=== PATIENT | female | born 1960 | race Caucasian/White ===

== ENCOUNTER 2022-03-24 16:35 | Outpatient (RCR) | payer MEDICARE, SELFPAY | END 2022-05-31 14:10 | disposition home or self-care (01) | PROVIDERS: PCP Family Medicine; Visit Provider Family Medicine | DX: M51.36 Other intervertebral disc degeneration, lumbar region (principal); M54.50 Low back pain, unspecified; R26.9 Unspecified abnormalities of gait and mobility; Z51.89 Encounter for other specified aftercare | CPT/HCPCS: 97110 ==

== ENCOUNTER 2022-09-20 17:58 | Emergency (ER) | payer MEDICARE, SELFPAY ==
[2022-09-20 18:30] VITALS: BP 158/75; PULSE 96; RESP 20; TEMP 36.2; O2SAT 99; BMI 28.3
[2022-09-20] MEDS: DEXTROSE 50 % SYRINGE IVP (18:34)
[2022-09-20 18:51] LABS: HCO3 VBG 26 mmol/L (21-28); PCO2 VBG 36 mmHG (40-50); PO2 VBG 33.9 mmHG (25-47); pH VBG 7.454 (7.32-7.43)
[2022-09-20 18:52] LABS: Basophils Absolute Auto 0.04 K/uL (0.00-0.30); Basophils Percent Auto 0.4 % (0.0-3.0); Eosinophils Absolute Auto 0.19 K/uL (0.00-0.50); Eosinophils Percent Auto 2.1 % (0.0-7.0); Hematocrit 37.4 % (33.0-51.0); Immature Granulocytes Abs Auto 0.01 K/uL (0.00-0.30); Immature Granulocytes Pct Auto 0.1 %; Lymphocytes Absolute Auto 2.07 K/uL (0.90-2.90); Lymphocytes Percent Auto 22.8 % (20-44); Mean Corpuscular HGB Conc 32 gm/dL (32-36); Mean Corpuscular Hemoglobin 28 pg (26-34); Mean Corpuscular Volume 86 fL (80-100); Monocytes Percent Auto 4.4 % (0.0-11.0); Neutrophils Absolute Auto 6.35 K/uL (1.7-7.0); Neutrophils Percent Auto 70.2 % (42.0-72.0); Platelet Count* 377 K/uL (140-440); RDW Coefficient of Variation % 13.7 % (11.5-15.5); Red Blood Count 4.33 m/uL (4.00-5.20); White Blood Count* 9.06 K/uL (4.50-11.00)
[2022-09-20 19:03] LABS: Slide Review Reflex No
[2022-09-20 19:07] LABS: Chloride* 110 mmol/L (96-114)
[2022-09-20 19:08] LABS: Albumin* 4.5 g/dL (3.3-5.0); Potassium* 3.8 mmol/L (3.6-5.1); Sodium* 143 mmol/L (135-149)
[2022-09-20 19:10] LABS: Creatinine* 0.5 mg/dL (0.5-1.5); Est. Creatinine Clearance* 52.49; Estimated Glomerular Filt Rate 106 ml/min
[2022-09-20 19:11] LABS: Aspartate Amino Transferase* 21 U/L (12-35); Bilirubin Direct* 0.2 mg/dL (0.0-0.5); Bilirubin Total* 0.6 mg/dL (0.1-1.5); Blood Urea Nitrogen* 19 mg/dL (7-30); Calcium* 9.6 mg/dL (8.4-10.6); Carbon Dioxide* 23 mmol/L (20-32); Glucose* 68 mg/dL (60-115); Total Protein* 8.1 g/dL (6.0-8.3)
[2022-09-20 19:12] LABS: Alanine Aminotransferase* 17 U/L (4-35); Alkaline Phosphatase* 130 U/L (40-150)
--- NOTE | 2022-09-20 19:45 | ED.NAVMDI ---
HPI - Nausea/Vomiting/Diarrhea General Chief complaint: Nausea/Vomiting Stated complaint: Can't keep food down, diabetic, blood sugar 60 Time Seen by Provider: 09/20/22 18:33 History of Present Illness HPI Narrative: This 62-year-old female comes in reporting persistent vomiting episodes over the past couple days. She does not report any particular abdominal pain. She does have diabetes and takes glucose lowering medications. Her glucose was noted to be at 48 upon arrival. She reports a dry mouth but does not have any polyuria. She states that she has a glucose monitor and there have been just a few episodes were her glucose was above 350 but nothing prolonged in this way. Related Data Home Medications Medication Instructions Recorded Confirmed cyclobenzaprine 10 mg tablet mg 09/20/22 flash glucose sensor (FreeStyle 09/20/22 09/20/22 Chente 2 Sensor kit) gabapentin 300 mg capsule mg 09/20/22 insulin glargine 100 unit/mL (3 unit subcut 09/20/22 mL) subcutaneous pen (Lantus Solostar U-100 Insulin) insulin lispro 100 unit/mL subcut 09/20/22 subcutaneous pen omeprazole 20 mg capsule,delayed mg 09/20/22 release pen needle, diabetic 31 gauge x 09/20/22 09/20/22 3/16 (BD Ultra-Fine Mini Pen Needle) simvastatin 20 mg tablet mg 09/20/22 Allergies Allergy/AdvReac Type Severity Reaction Status Date / Time acetaminophen [From Percocet] Allergy Verified 09/20/22 18:57 bacitracin Allergy Verified 09/20/22 18:57 doxycycline Allergy Verified 09/20/22 18:57 erythromycin base Allergy Verified 09/20/22 18:57 ibuprofen Allergy Verified 09/20/22 18:57 oxycodone [From Percocet] Allergy Verified 09/20/22 18:57 Review of Systems Status of ROS: Reports: 10 or more systems reviewed and unremarkable except as noted in History and below Narrative: Constitutional: No fevers, no weight gain or loss. Eyes: No discharge. No vision changes. HENT: No congestion, no sore throat, no ear pain. Cardiovascular: No chest pain, no palpitations. Respiratory: No shortness of breath, no wheezes, no cough. Gastrointestinal: No abdominal pain, no vomiting. She reports persistent nausea and vomiting. Genitourinary: No dysuria, no hematuria. Musculoskeletal: Normal range of motion. Skin: No rashes, no pruritis. Neurological: No dizziness, weakness, sensory change, speech change. Endo/Heme/Allergies: No bruising or bleeding. No polydipsia. Pysch: no suicidality, no anxiety, no insomnia. All other systems reviewed and are negative. Exam Narrative: Exam Narrative: Constitutional: Well-developed, well-nourished, no acute distress. HEENT: Normocephalic, atraumatic. Neck: Normal range of motion. Nontender. Supple. Heart: Regular. No murmurs. Normal rate. Intact distal pulses. Lungs: Clear to auscultation. No chest discomfort. No wheezes, rhonchi, or rales. Abdomen: Normal bowel sounds. Nontender. No rebound tenderness. Genitalia: Deferred. Back: No midline tenderness. Normal range of motion. Extremities: Normal range of motion. No injury. Skin: Intact. No rash. Warm. No erythema or pallor. Neurologic: No altered sensation. No weakness. Alert and oriented. Psychiatric: No suicidality. No anxiety or depression. No insomnia. Nursing notes and vitals signs are reviewed. Const: Vital Signs, click to edit/add: Vital Signs - 24 hr 09/20/22 18:30 Temperature 97.2 F L Pulse Rate [Right Pulse Oximeter] 96 Respiratory Rate 20 Blood Pressure [Ri ght Upper Arm] 158/75 H Pulse Oximetry 99 Oxygen Delivery Me thod Room Air Course Vital Signs Vital signs: Initial Vital Signs Temperature 97.2 F L 09/20/22 18:30 Temperature Source Temporal Artery Scan 09/20/22 18:30 Pulse Rate 96 09/20/22 18:30 Respiratory Rate 20 09/20/22 18:30 Blood Pressure 158/75 H 09/20/22 18:30 Blood Pressure Mean 102 09/20/22 18:30 Blood Pressure Position Sitting 09/20/22 18:30 Pulse Oximetry 99 09/20/22 18:30 Oxygen Delivery Method 09/20/22 18:30 Vital Signs Temperature 97.2 F L 09/20/22 18:30 Pulse Rate 96 09/20/22 18:30 Respiratory Rate 20 09/20/22 18:30 Blood Pressure 158/75 H 09/20/22 18:30 Pulse Oximetry 99 09/20/22 18:30 Oxygen Delivery Method 09/20/22 18:30 Temperature 97.2 F L 09/20/22 18:30 Pulse Rate 96 09/20/22 18:30 Respiratory Rate 20 09/20/22 18:30 Blood Pressure 158/75 H 09/20/22 18:30 Pulse Oximetry 99 09/20/22 18:30 Oxygen Delivery Method 09/20/22 18:30 MDM - Nausea/Vomiting/Diarrhea MDM Narrative Medical decision making narrative: This patient arrives reporting recurrent vomiting. Her glucose was initially evaluated at 48 so she received an amp of D50 intravenously. She also received a L of normal saline. Lab results returned with normal findings. Her venous pH is not ascitic, rather it is a bit alkalotic. She is not showing any signs of ketoacidosis. Her white count is normal range. Additionally her lipase is normal. She is feeling much better and is okay to return home. She did receive a prescription for Zofran. I advised her to decrease her glucose lowering medicines if she is not taking as much food or calories. Lab Data Labs: Lab Results 09/20/22 09/20/22 09/20/22 Range/Units 18:33 18:33 18:33 WBC 9.06 (4.50-11.00) K/uL RBC 4.33 (4.00-5.20) m/uL Hgb 12.0 (12.0-16.0) gm/dL Hct 37.4 (33.0-51.0) % MCV 86 (80-100) fL MCH 28 (26-34) pg MCHC 32 (32-36) gm/dL RDW Coeff of Yumiko 13.7 (11.5-15.5) % Plt Count 377 (140-440) K/uL Neut % (Auto) 70.2 (42.0-72.0) % Lymph % (Auto) 22.8 (20-44) % [place] % (Auto) 4.4 (0.0-11.0) % Eos % (Auto) 2.1 (0.0-7.0) % Baso % (Auto) 0.4 (0.0-3.0) % Neut # (Auto) 6.35 (1.7-7.0) K/uL Lymph # (Auto) 2.07 (0.90-2.90) K/uL [place] # (Auto) 0.40 (0.00-0.90) K/UL Eos # (Auto) 0.19 (0.00-0.50) K/uL Baso # (Auto) 0.04 (0.00-0.30) K/uL VBG pH (7.32-7.43) VBG pCO2 (40-50) mmHG VBG pO2 (25-47) mmHG VBG HCO3 (21-28) mmol/L Sodium 143 (135-149) mmol/L Potassium 3.8 (3.6-5.1) mmol/L Chloride 110 (96-114) mmol/L Carbon Dioxide 23 (20-32) mmol/L BUN 19 (7-30) mg/dL Creatinine 0.5 (0.5-1.5) mg/dL Estimated Creat Clear 52.49 Estimated GFR 106 ml/min Glucose 68 (60-115) mg/dL Calcium 9.6 (8.4-10.6) mg/dL Total Bilirubin 0.6 (0.1-1.5) mg/dL Direct Bilirubin 0.2 (0.0-0.5) mg/dL AST 21 (12-35) U/L ALT 17 (4-35) U/L Alkaline Phosphatase 130 (40-150) U/L Total Protein 8.1 (6.0-8.3) g/dL Albumin 4.5 (3.3-5.0) g/dL POC Troponin I (0.01-0.04) ng/ml 09/20/22 09/20/22 Range/Units 18:33 18:38 WBC (4.50-11.00) K/uL RBC (4.00-5.20) m/uL Hgb (12.0-16.0) gm/dL Hct (33.0-51.0) % MCV (80-100) fL MCH (26-34) pg MCHC (32-36) gm/dL RDW Coeff of Yumiko (11.5-15.5) % Plt Count (140-440) K/uL Neut % (Auto) (42.0-72.0) % Lymph % (Auto) (20-44) % [place] % (Auto) (0.0-11.0) % Eos % (Auto) (0.0-7.0) % Baso % (Auto) (0.0-3.0) % Neut # (Auto) (1.7-7.0) K/uL Lymph # (Auto) (0.90-2.90) K/uL [place] # (Auto) (0.00-0.90) K/UL Eos # (Auto) (0.00-0.50) K/uL Baso # (Auto) (0.00-0.30) K/uL VBG pH 7.454 H (7.32-7.43) VBG pCO2 36 L (40-50) mmHG VBG pO2 33.9 (25-47) mmHG VBG HCO3 26 (21-28) mmol/L Sodium (135-149) mmol/L Potassium (3.6-5.1) mmol/L Chloride (96-114) mmol/L Carbon Dioxide (20-32) mmol/L BUN (7-30) mg/dL Creatinine (0.5-1.5) mg/dL Estimated Creat Clear Estimated GFR ml/min Glucose (60-115) mg/dL Calcium (8.4-10.6) mg/dL Total Bilirubin (0.1-1.5) mg/dL Direct Bilirubin (0.0-0.5) mg/dL AST (12-35) U/L ALT (4-35) U/L Alkaline Phosphatase (40-150) U/L Total Protein (6.0-8.3) g/dL Albumin (3.3-5.0) g/dL POC Troponin I 0.00 L (0.01-0.04) ng/ml Discharge Plan Discharge Clinical Impression: Gastroenteritis, Hypoglycemia Patient Disposition: Home, Self-Care Condition: Improved Additional Instructions: Take medication as needed and directed. Follow up with MD to review medications. Return if worsening. Prescriptions: No Action cyclobenzaprine 10 mg tablet simvastatin 20 mg tablet gabapentin 300 mg capsule omeprazole 20 mg capsule,delayed release(DR/EC) insulin lispro 100 unit/mL insulin pen SUBCUT (DME) pen needle, diabetic [BD Ultra-Fine Mini Pen Needle] 31 gauge x 3/16 needle MISCELLANEOUS Label Comments: REMOVE THE 2 COVERS ON THE INSULIN PEN NEEDLE BEFORE ADMINISTERING INSULIN DOSE. insulin glargine [Lantus Solostar U-100 Insulin] 100 unit/mL (3 mL) insulin pen SUBCUT Label Comments: INJECT 40 UNITS SUBCUTANEOUS BEFORE BEDTIME. (DME) FreeStyle Chente 2 Sensor Kit MISCELLANEOUS Label Comments: CHANGE SENSOR EVERY 14 DAYS Follow Up/Referrals: Inés Mccarty MD [Primary Care Provider] - Stand Alone Forms: MyHealth Info Instructions
[2022-09-20 20:21] VITALS: BP 142/72; PULSE 99; RESP 18; O2SAT 92
[2022-09-23 12:54] LABS: Beta-Hydroxybutyric Acid 18.3 mg/dL (0.0-3.0)
== END 2022-09-20 21:10 | disposition home or self-care (01) ==
LOC: ED 20:43
PROVIDERS: Emergency Provider Emergency Medicine Emergency Medical Services; PCP Family Medicine
DX: K52.9 Noninfective gastroenteritis and colitis, unspecified (principal); E11.649 Type 2 diabetes mellitus with hypoglycemia without coma; Z79.84 Long term (current) use of oral hypoglycemic drugs
CPT/HCPCS: 36415; 80048; 80076; 82010; 82803; 84484; 85025; 96360; 96361; 96374; 99284; 99285

== ENCOUNTER 2022-11-23 10:30 | Outpatient (RCR) | payer MEDICARE, SELFPAY | END 2023-01-18 15:02 | disposition home or self-care (01) | PROVIDERS: PCP Family Medicine; Visit Provider Family Medicine | DX: M17.0 Bilateral primary osteoarthritis of knee (principal); M21.162 Varus deformity, not elsewhere classified, left knee; M21.161 Varus deformity, not elsewhere classified, right knee; M25.561 Pain in right knee; M25.562 Pain in left knee; G89.29 Other chronic pain; M62.81 Muscle weakness (generalized); Z51.89 Encounter for other specified aftercare | CPT/HCPCS: 97110; 97112; 97161; 97530 ==

== ENCOUNTER 2023-04-27 08:18 | Day surgery (SDC) | payer MEDICAID, SELFPAY ==
[2023-04-27] MEDS: KETOROLAC OPHTH 0.5% 1 DROP EYE-RIGHT ×3 (08:30→08:40)
[2023-04-27] MEDS: TETRACAINE 0.5% OPHTH 1 DROP EYE-RIGHT ×2 (08:30→08:35)
[2023-04-27] MEDS: SODIUM CHLORIDE 0.9 % (FLUSH) 10 ML SYRINGE IVF (08:40)
[2023-04-27 08:45] VITALS: BP 113/67; PULSE 91; RESP 16; TEMP 36.8; O2SAT 100
[2023-04-27 08:46] VITALS: BMI 30.3
--- NOTE | 2023-04-27 08:48 | SUR.PREOP ---
The eye drops brought by the patient (Ketorolac and Prednisolone) are examined and I have determined they are labeled by the patient's pharmacy for this patient as prescribed by the surgeon. The bottles are intact, recently obtained and appear to be correct.
[2023-04-27] MEDS: TETRACAINE 0.5% OPHTH 2 DROP EYE-RIGHT (09:33)
[2023-04-27] MEDS: BALANCED SALT IRRIG SOLN 15 ML EYE-RIGHT (09:35)
--- NOTE | 2023-04-27 09:36 | W.ANESCHARGE ---
Anesthesia Charges Start Date/Time Anesthesia Start Date: 04/27/23 Anesthesia Start Time: 09:29 Stop Date/Time Anesthesia Stop Date: 04/27/23 Anesthesia Stop Time: 10:02
[2023-04-27] MEDS: TRYPAN BLUE 0.5 ML SYRINGE EYE-RIGHT (09:37)
[2023-04-27 10:03] VITALS: BP 111/70; PULSE 81; RESP 16; TEMP 36.3; O2SAT 100
--- NOTE | 2023-04-27 10:07 | W.PM.OPTPROC ---
Procedure Note Date of procedure: 04/27/23 Will [facility] bill your pro fee for this procedure?: Yes Procedure Description: SURGEON: Gaye Basurto MD PREOPERATIVE DIAGNOSIS: Mature cataract, right eye. POSTOPERATIVE DIAGNOSIS: Mature cataract, right eye. NAME OF OPERATION: Phacoemulsification of cataract with posterior chamber intraocular lens implantation in the right eye with trypan blue. ANESTHESIA: Topical. ESTIMATED BLOOD LOSS: Less than 2 cc. COMPLICATIONS: None. PATHOLOGY SPECIMEN: None. INDICATIONS: See consult note for details. The risks, benefits and alternatives of the procedure were explained to the patient, who elected to proceed and signed informed consent to do so. PROCEDURE: The patient was brought to the pre-holding area where the right eye was identified as the operative eye. I placed my initials above this eye. The patient received eye drops consisting of 0.5% tetracaine, 1% tropicamide, 10% phenylephrine, and 0.5% ketorolac. The patient was then brought to the operating room where the left eye was again identified as the operative eye. The eye was prepped with Betadine and draped in the usual sterile ophthalmic fashion. A #15 super-sharp blade was used to create a paracentesis site. 1% non-preserved intracameral lidocaine was injected into the anterior chamber. An air bubble was injected into the anterior chamber. Trypan blue was injected posterior to the air bubble in order to stain the anterior capsule. Balanced salt solution was used to irrigate the anterior chamber. Endocoat was injected into the anterior chamber. A 2.4 mm keratome was used to create a three-plane self-sealing incision 1 mm anterior to the temporal limbus. A cystotome was used to create an anterior capsular leaflet. The Utrata forceps were used to extend this to form a continuous curvilinear capsulorrhexis. Hydrodissection was performed. The cataract was removed with phacoemulsification using the [id number] technique. The irrigation and aspiration tip was used to remove the remaining cortex. Healon was injected into the capsular bag. An VAHE ZCB00 intraocular lens of 22.5 diopters was injected into the capsular bag. The irrigation and aspiration tip was used to remove the remaining viscoelastic. Balanced salt solution on a cannula was used to hydrate the wound, and the wound was found to be watertight. The pupil was noted to be round. DISPOSITION: The patient was taken to the recovery room and discharged to home in stable condition. The patient was instructed to call me or go to the emergency department with any sudden change, including dramatic loss of vision, severe pain in the eye or eyebrow region, nausea, or vomiting. The patient will follow up in the clinic tomorrow morning.
--- NOTE | 2023-04-27 10:22 | W.ANESCHARGE ---
Anesthesia Charges Start Date/Time Anesthesia Start Date: 04/27/23 Anesthesia Start Time: 09:29 Stop Date/Time Anesthesia Stop Date: 04/27/23 Anesthesia Stop Time: 10:02
== END 2023-04-27 10:30 | disposition home or self-care (01) ==
LOC: OR 08:20
PROVIDERS: PCP Family Medicine; Visit Provider Ophthalmology
PROC: (CPT 66984; principal; 2023-04-27 09:00)
DX: H25.89 Other age-related cataract (principal)
CPT/HCPCS: 66984; 142; 82962; A9270; J2250; J3010; V2632

== ENCOUNTER 2023-06-08 08:45 | Day surgery (SDC) | payer MEDICAID, SELFPAY ==
[2023-06-08] MEDS: TETRACAINE 0.5% OPHTH 1 DROP EYE-LEFT ×2 (09:18→09:24)
[2023-06-08] MEDS: KETOROLAC OPHTH 0.5% 1 DROP EYE-LEFT ×3 (09:22→09:36)
[2023-06-08] MEDS: SODIUM CHLORIDE 0.9 % (FLUSH) 10 ML SYRINGE IVF (09:31)
[2023-06-08 09:33] VITALS: BP 132/73; PULSE 102; RESP 16; TEMP 36.8; O2SAT 99; BMI 12.4
[2023-06-08] MEDS: TETRACAINE 0.5% OPHTH 2 DROP EYE-LEFT (10:27)
[2023-06-08] MEDS: TRYPAN BLUE 0.5 ML SYRINGE EYE-LEFT (10:32)
[2023-06-08] MEDS: BALANCED SALT IRRIG SOLN 15 ML EYE-LEFT (10:32)
--- NOTE | 2023-06-08 10:32 | W.ANESCHARGE ---
Anesthesia Charges Start Date/Time Anesthesia Start Date: 06/08/23 Anesthesia Start Time: 10:25 Stop Date/Time Anesthesia Stop Date: 06/08/23 Anesthesia Stop Time: 10:58
--- NOTE | 2023-06-08 11:00 | W.PM.OPTPROC ---
Procedure Note Date of procedure: 06/08/23 Will [facility] bill your pro fee for this procedure?: Yes Procedure Description: SURGEON: Gaye Basurto MD PREOPERATIVE DIAGNOSIS: Mature cataract, left eye. POSTOPERATIVE DIAGNOSIS: Mature cataract, left eye. NAME OF OPERATION: Phacoemulsification of cataract with posterior chamber intraocular lens implantation in the left eye with trypan blue. ANESTHESIA: Topical. ESTIMATED BLOOD LOSS: Less than 2 cc. COMPLICATIONS: None. PATHOLOGY SPECIMEN: None. INDICATIONS: See consult note for details. The risks, benefits and alternatives of the procedure were explained to the patient, who elected to proceed and signed informed consent to do so. PROCEDURE: The patient was brought to the pre-holding area where the left eye was identified as the operative eye. I placed my initials above this eye. The patient received eye drops consisting of 0.5% tetracaine, 1% tropicamide, 10% phenylephrine, and 0.5% ketorolac. The patient was then brought to the operating room where the left eye was again identified as the operative eye. The eye was prepped with Betadine and draped in the usual sterile ophthalmic fashion. A #15 super-sharp blade was used to create a paracentesis site. 1% non-preserved intracameral lidocaine was injected into the anterior chamber. An air bubble was injected into the anterior chamber. Trypan blue was injected posterior to the air bubble in order to stain the anterior capsule. Balanced salt solution was used to irrigate the anterior chamber. Endocoat was injected into the anterior chamber. A 2.4 mm keratome was used to create a three-plane self-sealing incision 1 mm anterior to the temporal limbus. A cystotome was used to create an anterior capsular leaflet. The Utrata forceps were used to extend this to form a continuous curvilinear capsulorrhexis. Hydrodissection was performed. The cataract was removed with phacoemulsification using the [id number] technique. The irrigation and aspiration tip was used to remove the remaining cortex. Healon was injected into the capsular bag. An VAHE ZCB00 intraocular lens of 22.5 diopters was injected into the capsular bag. The irrigation and aspiration tip was used to remove the remaining viscoelastic. Balanced salt solution on a cannula was used to hydrate the wound, and the wound was found to be watertight. The pupil was noted to be round. DISPOSITION: The patient was taken to the recovery room and discharged to home in stable condition. The patient was instructed to call me or go to the emergency department with any sudden change, including dramatic loss of vision, severe pain in the eye or eyebrow region, nausea, or vomiting. The patient will follow up in the clinic tomorrow morning.
[2023-06-08 11:18] VITALS: BP 109/65; PULSE 78; RESP 16; TEMP 36.3; O2SAT 98
--- NOTE | 2023-06-08 11:35 | W.ANESCHARGE ---
Anesthesia Charges Start Date/Time Anesthesia Start Date: 06/08/23 Anesthesia Start Time: 10:25 Stop Date/Time Anesthesia Stop Date: 06/08/23 Anesthesia Stop Time: 10:58
== END 2023-06-08 11:27 | disposition home or self-care (01) ==
LOC: OR 08:46
PROVIDERS: PCP Family Medicine; Visit Provider Ophthalmology
PROC: (CPT 66984; principal; 2023-06-08 09:00)
DX: H25.89 Other age-related cataract (principal)
CPT/HCPCS: 66984; 142; 82962; A9270; J2250; J3010; V2632

== ENCOUNTER 2023-06-28 14:33 | Outpatient (CLI) | payer MEDICAID, SELFPAY | END 2023-06-28 14:34 | disposition home or self-care (01) | LOC: INJ CL 14:33 | PROVIDERS: PCP Family Medicine; Visit Provider Family Medicine | DX: M17.12 Unilateral primary osteoarthritis, left knee (principal); M25.561 Pain in right knee | CPT/HCPCS: 64454 ==

== ENCOUNTER 2023-07-19 12:12 | Outpatient (CLI) | payer MEDICAID, SELFPAY | END 2023-07-19 12:13 | disposition home or self-care (01) | LOC: INJ CL 12:13 | PROVIDERS: PCP Family Medicine; Visit Provider Family Medicine | DX: M17.12 Unilateral primary osteoarthritis, left knee (principal); M25.562 Pain in left knee; G89.29 Other chronic pain | CPT/HCPCS: 64624; J2250; J3010 ==

== ENCOUNTER 2023-08-18 12:34 | Outpatient (CLI) | payer MEDICAID, SELFPAY | END 2023-08-18 12:35 | disposition home or self-care (01) | PROVIDERS: PCP Family Medicine; Visit Provider Nurse Practitioner Family | DX: S91.301A Unspecified open wound, right foot, initial encounter (principal) | CPT/HCPCS: 87070; 87186 ==

== ENCOUNTER 2023-08-25 08:01 | Outpatient (CLI) | payer MEDICAID, SELFPAY | END 2023-08-25 08:02 | disposition home or self-care (01) | PROVIDERS: PCP Family Medicine; Visit Provider Nurse Practitioner Family | DX: E11.621 Type 2 diabetes mellitus with foot ulcer (principal); L97.512 Non-pressure chronic ulcer of other part of right foot with fat layer exposed; Z79.84 Long term (current) use of oral hypoglycemic drugs; Z71.6 Tobacco abuse counseling | CPT/HCPCS: 97602; 99213 ==

== ENCOUNTER 2023-09-01 08:59 | Outpatient (CLI) | payer MEDICAID, SELFPAY | END 2023-09-01 09:00 | disposition home or self-care (01) | LOC: WOUND 08:59 | PROVIDERS: PCP Family Medicine; Visit Provider Nurse Practitioner Family | DX: E11.621 Type 2 diabetes mellitus with foot ulcer (principal); L97.512 Non-pressure chronic ulcer of other part of right foot with fat layer exposed; Z79.4 Long term (current) use of insulin | CPT/HCPCS: 11042 ==

== ENCOUNTER 2023-09-08 08:10 | Outpatient (CLI) | payer MEDICAID, SELFPAY | END 2023-09-08 08:11 | disposition home or self-care (01) | LOC: WOUND 08:10 | PROVIDERS: PCP Family Medicine; Visit Provider Nurse Practitioner Family | DX: E11.621 Type 2 diabetes mellitus with foot ulcer (principal); L97.512 Non-pressure chronic ulcer of other part of right foot with fat layer exposed; Z79.4 Long term (current) use of insulin | CPT/HCPCS: 97597 ==

== ENCOUNTER 2023-09-22 08:17 | Outpatient (CLI) | payer MEDICAID, SELFPAY | END 2023-09-22 08:18 | disposition home or self-care (01) | LOC: WOUND 08:18 | PROVIDERS: PCP Family Medicine; Visit Provider Family Medicine | DX: E11.621 Type 2 diabetes mellitus with foot ulcer (principal); L97.512 Non-pressure chronic ulcer of other part of right foot with fat layer exposed; Z79.4 Long term (current) use of insulin | CPT/HCPCS: 11042 ==

== ENCOUNTER 2023-10-13 10:26 | Outpatient (CLI) | payer MEDICAID, SELFPAY ==
--- OUTSIDE RECORDS SUMMARY | 2023-10-13 10:28 | XMS_ITS | Clinical Summary ---
Author Name Unknown Organization [facility] Address [place], [place] [address] Care Team Providers Care Offline Cutter Name Role Phone Lulu Cano MD Primary Care Provider Allergies Active Allergy Reactions Criticality Noted Date Comments Bacitracin Rash 05/02/2007 Doxycycline Rash 05/02/2007 Erythromycin Vaginal Irritation 06/02/2007 Developed a severe yeast infection Ibuprofen Rash,Bleeding 05/02/2007 Oxycodone-Acetaminophen Hives,Wheezing 05/02/20 07 Medications Medication Sig Dispensed Refills Start Date End Date Status MULTIVITAMIN TAB take 1 tablet by oral route once daily with food 0 7 Active CALCIUM + D 600 MG (1,500)-200 UNIT TAB daily 0 0 8 Active medication order composerIndications: Type 2 diabetes mellitus without complication, with long-term current use of insulin (HC) 1 unit every 1 year. Diabetes with preulcerative callous and hammertoe deformity 1 unit 0 6 Active aspirin (ECOTRIN) 81 mg enteric coated tabletIndications:Un controlled type 2 diabetes mellitus without complication, with long-term current use of insulin Take 1 tablet by mouth once daily with a meal. 30 tablet 11 7 Active flash glucose scanning reader (FreeStyle Chente 2 Barlow) miscIndications:Unco ntrolled type 2 diabetes mellitus, with long-term current use of insulin As directed. 1 Each 0 1 Active diclofenac topical (VOLTAREN) 1 % gelIndications:Bilat eral hand pain Apply 2 g topically to affected area(s) 4 times daily. 200 g 1 1 Active blood sugar diagnostic (Blood Glucose Test) stripIndications:Unc ontrolled type 2 diabetes mellitus, with long-term current use of insulin Free style chente 2 strips. For use when sensor fails.Test 4-6 times per day. 100 Each 1 Active blood-glucose meterIndications:Unc ontrolled type 2 diabetes mellitus, with long-term current use of insulin Dispense meter, test strips(#100), lancets(#100) covered by pt ins. E11.9 NIDDM type II - Test 2 times/day. 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 90 Tablet 3 2 Active cyclobenzaprine (FLEXERIL) 10 mg tabletIndications:DD D (degenerative disc disease), lumbar Take 1 Tablet (10 mg) by mouth at bedtime if needed for Muscle Spasm. 90 Tablet 1 2 Active FreeStyle Chente 2 SensorIndications:Ty pe 2 diabetes mellitus with other specified complication, with long-term current use of insulin (HC) CHANGE SENSOR EVERY 14 DAYS 6 Each 3 3 Active insulin lispro, U-100, (HUMALOG KWIKPEN; ADMELOG SOLOSTAR) 100 unit/mL inpn penIndications:Type 2 diabetes mellitus with other specified complication, with long-term current use of insulin (HC) INJECT 5 UNITS WITH DINNER PLUS CORRECTION DOSE OF 1:50 OVER 150, UP TO 45 UNITS DAILY 15 mL 1 3 Active Insulin Orient, Disposable, (bd insulin pen needle uf mini) 31 gauge x /16Indications:Lynn gonzalez 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 (increased dose) 540 Capsule 0 3 Active omeprazole 20 mg tabletIndications:He artburn Take 1 Tablet (20 mg) by mouth once daily before a meal. 90 Tablet 2 3 Active ammonium lactate 12% (LACHYDRIN) 12 % cream Apply topically to affected area(s) one time. daily 0 3 Active empagliflozin (JARDIANCE) 25 mg tabletIndications:Ty pe 2 diabetes mellitus with other specified complication, with long-term current use of insulin (HC) Take 1 Tablet (25 mg) by mouth once daily. Take in the morning. 90 Tablet 1 4 Active insulin glargine, U-100, (Lantus Solostar U-100 Insulin) 100 unit/mL (3 mL) penIndications:Type 2 diabetes mellitus with other specified complication, with long-term current use of insulin (HC) Inject 50 units subcutaneous before bedtime. Product desired: LANTUS SOLOSTAR 0 4 Active ofloxacin 0.3 % ophthalmic (OCUFLOX) 0.3 % ophthalmic solution Place 1 Drop into left eye four times daily. 0 3 09/30/19 24 Discontinu ed(*Patien t states no longer taking) ketorolac 0.5 % ophthalmic (ACULAR) solution Place 1 Drop into left eye four times daily. 0 3 09/30/19 24 Discontinu ed(*Patien t states no longer taking) prednisoLONE acetate 1% ophthalmic (ECONOPRED PLUS, PRED FORTE, OMNIPRED) suspension Place 1 Drop into left eye three times daily. 0 3 09/30/19 24 Discontinu ed(*Patien t states no longer taking) empagliflozin (JARDIANCE) 10 mg tabletIndications:Ty pe 2 diabetes mellitus with other specified complication, with long-term current use of insulin (HC) Take 1 Tablet (10 mg) by mouth once daily. Take in the morning. 90 Tablet 0 3 09/30/19 24 Discontinu ed(*Medica tion adjustment ) insulin glargine, U-100, (Lantus Solostar U-100 Insulin) 100 unit/mL (3 mL) penIndications:Type 2 diabetes mellitus with other specified complication, with long-term current use of insulin (HC) Inject 55 units subcutaneous before bedtime. Product desired: LANTUS SOLOSTAR 45 mL 1 3 09/30/19 24 Discontinu ed(*Medica tion adjustment ) amoxicillin-clavulan ate 875-125 mg tablet (AUGMENTIN) Take 1 Tablet by mouth two times daily with meals. 0 3 09/30/19 24 Discontinu ed(*Patien t states no longer taking) Active Problems Problem Noted Date Diagnosed Date ASCUS of cervix with negative high risk HPV 11/17 Overview: 12/01/2020 ASCUS/HPV Negative. Plan: Pap/HPV due 11/2023 Mild nonproliferative diabet ic retinopathy of right eye without macular edema associated with type 2 diabetes mellitus 11/10/2017 Knee pain, left 07/25/2017 Osteoarthritis of knees, bilateral 07/25/2017 Right hand pain 07/25/2017 Arthritis of hand 07/25/2017 Amphetamine abuse 07/14/2017 Marijuana abuse 07/14/2017 Noncompliance with diet and medication regimen 1 Uncontrolled type 2 diabetes mellitus without complication, with long-term current use of insulin 07/14/2017 Chest pain in adult 07/14/2017 Acquired hammer toe 07/14/2017 Foot pain, right 07/14/2017 Lumbar disc herniation 06/29/2013 Osteoarthritis of hip 06/27/2009 DDD (degenerative disc disease), lumbar 06/27/20 09 Overview: MRI 2006 L4-5 left disc herniation, L5-S1 disffuse disc bulding. ~ May 30, 2012:L5-S1 transforaminal Work comp epidural steroid injection by Dr. Perdue. Obesity, unspecified 11/29/2007 Tobacco use disorder 08/18/2007 Other and unspecified hyperlipidemia 08/18/2007 Dysthymic disorder 06/19/2007 Resolved Problems Problem Noted Date Diagnosed Date Resolved Date Anticoagulation monitoring, INR range 2.5-3.5 04/17/20 14 04/17/2014 Pain medication agreement 11/26/2011 Overview: [place] adjusted per [facility] Signed Electronically: Angelo Perdue M.D. . . . 9:13 AM 03/25/2014 Type II or unspecified type diabetes mellitus without mention of complication, not stated as uncontrolled 04/28/2006 07/14/2017 Encounters Date Type Department Care Team Description 10/03/[address] [address] Brenda Rush, Results 09/30/2023 10:15 AM CREATIVE ARTS THERAPIST Ancillary Procedure [address] [address] 09/30/2023 9:10 AM CREATIVE ARTS THERAPIST Office Visit [address] [address] Brenda Rush, Diabetes (diabetes check); Lump (lump/bump at base of neck in front); Results (discuss increased blood pressure and Jardiance) 09/30/2023 Travel 09/28/[address] [address] Brenda Rush DO Refill Request; JARDIANCE 09/21/2023 Orders Only [facility] Scanner 1 scan: (1-Ord) [facility], 09/21/2023 09/08/[address] [address] Lulu Cano MD Refill Request (OMEPRAZOLE 20MG CAPSULES) 08/29/[address] [address] Lulu Cano MD Refill Request (Gabapentin 300mg capsules ) 08/18/[address] [address] Lulu Cano MD Refill Request (B-D PEN NDL MINI [id number]) 07/19/2023 1:00 PM CDT Procedure Only [facility] [address] [place] [address] Angelo Perdue MD Procedure (Left knee RFA with Coolief) 07/19/2023 Orders Only [facility] Scanner 1 scan: (1-Ord) [facility] GENICULAR NERVE RADIOFREQUENCY W/ IMAGING GUIDANCE, 07/19/2023 from Last 3 Months Immunizations Name Administration Dates Next Due COVID-19 Vaccine Spikevax (M oderna 50mcg/0.5mL) 12YO+ [id number] Formula PF 06/30/2023 COVID-19 vaccine (Moderna 100mcg/0.5mL) PF, MDV 11/14/2020,10/17/2020 COVID-19 vaccine (Pfizer-Bio NTech 30mcg/0.3mL) 12YO+ BIVALENT PF, MDV 07/28/2022 Influenza, IIV3 (Age 6-35 mos) 06/07/2011 Influenza, IIV3 (Age >=3 years) 05/16/20 15,05/20/2013,05/18/2013,2011,06/07/2011,06/07/2010,06/12/2009,1 ,07/07/2007 Influenza, IIV4 06/30/2023, 2,07/20/2021,2017,05/19/2017,05/31/2016,06/14/2014 Influenza, IIV4 (=>6mos) MDV 05/19/2017,05/31/20 16,05/14/2016 Pneumococcal Conj 20-valent (Prevnar 20) 07/28/2022 Pneumococcal Poly,23-Valent (Pneumovax) 12/26/2013 Td (Age >=7 Years) 06/19/2005 Td, Preservative Free (age > = 7 Years) 07/06/2005 Tdap 12/26/2013 Zoster (Zostavax-ZVL, live) 03/15/2012 Family History Medical History Relation Name Comments Diabetes Brother 1 Other Brother 2 19 motorcycle acci dent, probably alcohol related Other Brother 3 32 got hit by an S UV while biking Other Brother 4 45 carbon monoxide poisoning while working on a car while intoxicated, thought to be accidental Arthritis Father Diabetes Mother Heart failure Mother Cancer-colon Neg. Cancer-breast Paternal Aunt x 2 both post menopause Relation Name Status Comments Brother 1 Alive Brother 2 19 Brother 3 32 Brother 4 45 Father Alive Mother Neg. Paternal Aunt Social History Tobacco Use Types Packs/Day Years Used Date Smoking Tobacco: Every Day Cigarettes 0.5 30 Smokeless Tobacco: Never Tobacco Cessation:Ready to Q uit: No; Counseling Given: Not Answered Alcohol Use Standard Drinks/Week Comments Not Currently 0 (1 standard drink = 0.6 oz pur e alcohol) PHQ-2 Answer Date Recorded PHQ-2 TOTAL SCORE 0 04/11/2023 Social Connections Answer Date Recorded Frequency of Communication with Friends and Fami ly 0 05/27/2023 Financial Resource Strain Answer Date R ecorded Difficulty of Paying Living Expenses 3 05/27/2023 Difficulty of Paying Living Expenses Not on file 05/27/2023 Food Insecurity Answer Date Recorded Worried About Running Out of Food in the Last Ye ar 1 05/27/2023 Transportation Needs Answer Date Record ed Lack of Transportation (Medical) 1 05/27/2023 Housing Stability Answer Date Recorded Unable to Pay for Housing in the Last Year 1 05/27/2023 Sex and Gender Information Value Date Recorded Sex Assigned at Not on file Gender Identity Not on file Sexual Orientation Not on file Obstetrics History Para Term AB IAB SAB Ectopic Multiple Livin g Live Births 0 0 0 0 0 0 0 0 0 Last Filed Vital Signs Vital Sign Reading Time Taken Comments Blood Pressure 128/79 09/30/2023 9:48 AM CREATIVE ARTS THERAPIST Pulse 96 09/30/2023 9:48 AM CREATIVE ARTS THERAPIST Temperature 36.9 ??C (98.5 ??F) 05/30/2023 1 0:28 AM CDT Respiratory Rate 18 10/02/2021 8:48 AM CREATIVE ARTS THERAPIST Oxygen Saturation 100% 09/30/2023 9:32 AM CREATIVE ARTS THERAPIST Inhaled Oxygen Concentration - - Weight 84.3 kg (185 lb 12.8 oz) 09/30/2023 9:32 AM CREATIVE ARTS THERAPIST Height 162 cm (5' 3.78) 05/27/2023 11: 24 AM CDT Body Mass Index 32.11 05/27/2023 11:24 AM CDT Plan of Treatment Upcoming Encounters Date Type Department Care Team (Late st Contact Info) Description 12/30/2023 10:20 AM CDT Office Visit [facility] [address] [place] [address] Lulu Cano MD [address] [facility] [address] Health Maintenance Due Date Last Done Comments Colonoscopy through age [address] (for lung CA) ag e 50-80 2010 Zoster (shingles) series for age 50+ (2 of 3) 05/10/2012 03/15/2012 Mammogram for age 45-75 12/19/2021 12/20/19, 03/27/2015, 07/20/2011, Additional history exists Pap test for age 21-65 12/02/2023 , 12/01/2020, 03/27/2015, Additional history exists Tetanus booster 12/27/2023 12/26/2013, 06/19, 06/19/2005 Depression screening for age 12+ 04/11/2024 04/11/2023, 12/08/2021, 12/07/2021, Additional history exists BMI (ht and wt on same day) for age 18+ 05/27/2024 05/27/2023, 04/11/2023, 12/07/2021, Additional history exists Lipids for age 45-75 09/30/2028 09/30/2023, 12/07/2021, 12/01/2020, Additional history exists Tdap Completed 12/26/2013 HIV for age 15-65 Completed 07/14/2017 Hepatitis C screening for ag e 18-79 Completed 12/01/2020 Pneumococcal series for age 6-64 Completed 07/28/20, 12/26/2013 COVID-19 vaccine series Completed 06/30/20, 07/28/2022, 11/14/2020, Additional history exists Influenza for age 50-64 Completed 06/30/20, 07/28/2022, 07/20/2021, Additional history exists Procedures Procedure Name Priority Date/Time Associated Diagnosis Comments XR CLAVICLE RIGHT Routine 09/30/2023 10: 21 AM CREATIVE ARTS THERAPIST Deformity of clavicle LIPID PANEL W REFLEX MEASURED LDL Routine 09/30/2023 9:26 AM CREATIVE ARTS THERAPIST Type 2 diabetes mellitus with diabetic cataract, with long-term current use of insulin (HC) BASIC METABOLIC PANEL Routine 09/30/2023 9:26 AM CREATIVE ARTS THERAPIST Type 2 diabetes mellitus with diabetic cataract, with long-term current use of insulin (HC) HEMOGLOBIN A1C Routine 09/30/2023 9:26 AM CREATIVE ARTS THERAPIST Type 2 diabetes mellitus with diabetic cataract, with long-term current use of insulin (HC) SCAN-EYE EXAM 09/21/2023 12:00 AM CREATIVE ARTS THERAPIST SCAN-OPERATIVE/PROCE DURE REPORT 07/19/2023 12:00 AM CDT from Last 3 Months Results * XR CLAVICLE RIGHT (09/30/2023 10:21 AM CREATIVE ARTS THERAPIST) Anatomical Region Laterality Modality CLAVICLE R, CLAVICLES Computed R adiography 10/01/2023 3:14 PM CREATIVE ARTS THERAPIST Narrative 10/01/2023 3:14 PM CREATIVE ARTS THERAPIST For Patients: ??As a result of the Cures Act, medical imaging exams and procedure reports are released immediately into your electronic medical record. ??You may view this report before your referring provider. ??If you have questions, please contact your health care provider. Indication: Deformity of clavicle. Technique: Right clavicle two views. Comparison: None Findings: No acute fracture or dislocation. Degenerative changes of the acromioclavicular and glenohumeral joints. No additional osseous abnormality evident. Soft tissues as imaged are unremarkable. Impression: No acute osseous abnormality. Dictated by Zain Roman MD @ 10/01/2023 3:14:44 PM (Electronically Signed) Procedure Note Zain Roman DO - 10/01/2023 For Patients: As a result of the Cures Act, medical imagingexams and procedure reports are released immediately into your electronicmedical record. You may view this report before your referring provider.If you have questions, please contact your health care provider. Indication: Deformity of clavicle. Technique: Right clavicle two views. Comparison: None Findings: No acute fracture or dislocation. Degenerative changes of theacromioclavicular and glenohumeral joints. No additional osseousabnormality evident. Soft tissues as imaged are unremarkable. Impression: No acute osseous abnormality. Dictated by Zain Roman MD @ 10/01/2023 3:14:44 PM (Electronically Signed) Brenda Rush DO GENERAL IMAGING * (ABNORMAL) LIPID PANEL W REFLEX MEASURED LDL (09/30/2023 9:26 AM CREATIVE ARTS THERAPIST) CHOLESTEROL,TOTAL 152 100 - 199 mg/dL 09/30/2023 5:57 PM CREATIVE ARTS THERAPIST [facility] Comment: Cholesterol, Total Reference Ranges Desirable <200 mg/dL Borderline 200-239 mg/dL High >=240 mg/dL TRIGLYCERIDES 178(H) <150 mg/dL 09/30/2023 5:57 PM CREATIVE ARTS THERAPIST [facility] HDL CHOLESTEROL 60 >40 mg/dL 5:57 PM CREATIVE ARTS THERAPIST [facility] NON-HDL CHOLESTEROL 92 <145 mg/dl 09/30/2023 5:57 PM CREATIVE ARTS THERAPIST [facility] CHOL/HDL RATIO 2.53 <4.50 09/30/2023 5:57 PM CREATIVE ARTS THERAPIST [facility] LDL CHOLESTEROL 56 <=130 mg/dL 09/30/2023 5:57 PM CREATIVE ARTS THERAPIST [facility] VLDL CHOLESTEROL 36(H) <=30 mg/dL 09/30/2023 5:57 PM CREATIVE ARTS THERAPIST [facility] PROVIDER ORDERED STATUS RANDOM 09/30/2023 5:57 PM CREATIVE ARTS THERAPIST [facility] Blood BLOOD SPECIMEN / Unknown Venipuncture / Unknown 09/30/2023 9:26 AM CREATIVE ARTS THERAPIST 09/30/2023 9:28 AM CREATIVE ARTS THERAPIST Brenda Rush DO CHEMISTRY Performing Organization Address [facility]/ZIP Co de Phone Number [facility] [address] [place] [address], [place] * (ABNORMAL) HEMOGLOBIN A1C MONITORING (POCT) (09/30/2023 9:26 AM CREATIVE ARTS THERAPIST) Pathologist [facility] HEMOGLOBIN A1C MONITORING (POCT) 9.6(H) <=6.4 % 09/30/2023 9:44 AM CREATIVE ARTS THERAPIST [facility] Blood BLOOD SPECIMEN / Unknown Venipuncture / Unknown 09/30/2023 9:26 AM CREATIVE ARTS THERAPIST 09/30/2023 9:28 AM CREATIVE ARTS THERAPIST Narrative [facility] - 09/30/2023 9:44 AM CREATIVE ARTS THERAPIST ? (<=6.9%) ? Indicates good control ? (7.0% to 7.9%) ? Indicates fair control ? (>=8.0%) ? Indicates poor control ?? NOTE: ??These thresholds are guidelines and ?individual targets may vary. Falsely low levels may be seen with: Recent Transfusion, Recent Significant Blood Loss, Hemolytic Diseases, or Falsely elevated levels may be seen with: Untreated Anemias, Splenectomy ? Brenda Rush DO CHEMISTRY Performing Organization Address [facility] de Phone Number [facility] [address] [place] [address], [place] [phone] * (ABNORMAL) BASIC METABOLIC PANEL (09/30/2023 9:26 AM CREATIVE ARTS THERAPIST) [facility] SODIUM 137 136 - 145 mmol/L 09/30/2023 5:57 PM CREATIVE ARTS THERAPIST [facility] POTASSIUM 4.5 3.5 - 5.1 mmol/L 09/30/2023 5:57 PM CREATIVE ARTS THERAPIST [facility] CHLORIDE 101 98 - 107 mmol/L 09/30/2023 5:57 PM CREATIVE ARTS THERAPIST [facility] CO2,TOTAL 24 22 - 29 mmol/L 09/30/2023 5:57 PM [facility] ANION GAP 12 5 - 18 09/30/2023 5:57 PM [facility] GLUCOSE 198(H) 70 - 99 mg/dL 09/30/2023 5:57 PM [facility] CALCIUM 9.9 8.8 - 10.2 mg/dL 09/30/2023 5:57 PM [facility] BUN 16 8 - 23 mg/dL 09/30/2023 5:57 PM [facility] CREATININE 0.68 0.50 - 0.90 mg/dL 09/30/2023 5:57 PM [facility] BUN/CREAT RATIO 24(H) 10 - 20 5:57 PM [facility] eGFR >90 >90 mL/min/1.7 3m2 09/30/2023 5:57 PM [facility] Comment:As of 2021, eG FR is calculated by the CKD-EPI creatinine equation without race adjustment. ??eGFR can be influenced by muscle mass, exercise, and diet. ??The reported eGFR is an estimation only and is only applicable if the renal function is stable. Blood BLOOD SPECIMEN / Unknown Venipuncture / Unknown 09/30/2023 9:26 AM CREATIVE ARTS THERAPIST 09/30/2023 9:28 AM CREATIVE ARTS THERAPIST Brenda Rush DO CHEMISTRY [facility] [address] [place] [id number], * SCAN-EYE EXAM (09/21/2023 12:00 AM CREATIVE ARTS THERAPIST) Scanner OTHER * SCAN-OPERATIVE/PROCEDURE REPORT (07/19/2023 12:00 AM CDT) Scanner OTHER from Last 3 Months Advance Directives Documents on File Type Date Recorded Patient Preparole Counseling Aide Expl anation Healthcare Directive 09/25/2015 3:50 PM [facility], 05/06/2015 Care Teams Offline Cutter Relationship Specialty Start Date End Date Lulu Cano MD [address] [place] [address] PCP - General Family Practice 04/11/23
== END 2023-10-13 10:27 | disposition home or self-care (01) ==
LOC: WOUND 10:26
PROVIDERS: PCP Family Medicine; Visit Provider Nurse Practitioner Family
DX: E11.621 Type 2 diabetes mellitus with foot ulcer (principal); L97.522 Non-pressure chronic ulcer of other part of left foot with fat layer exposed; Z79.84 Long term (current) use of oral hypoglycemic drugs
CPT/HCPCS: 97602; G0463

== ENCOUNTER 2023-10-20 11:02 | Outpatient (CLI) | payer MEDICAID, SELFPAY ==
--- OUTSIDE RECORDS SUMMARY | 2023-10-20 11:15 | XMS_ITS | Clinical Summary ---
Author Name Unknown Organization [employer] [facility] Address [place], [place] [address] Care Team Providers Care Jewelry Sorter Name Role Phone Lulu Cano MD Primary [...] flash glucose scanning reader (FreeStyle Chente 2 [place]) miscIndications:Unco ntrolled type 2 diabetes mellitus, with [...] DAILY 15 mL 1 3 Active Insulin Phyllis, Disposable, (bd insulin pen needle uf mini) [...] 14 04/17/2014 Pain medication agreement 11/26/2011 Overview: Charlotte adjusted per [facility] Signed Electronically: Angelo Perdue M.D. . . . 9:13 AM 03/25/2014 Type II or unspecified type diabetes mellitus without mention of complication, not stated as uncontrolled 04/28/2006 07/14/2017 Encounters Date Type Department Care Team Description 10/03/[address] [address] Brenda Rush, Results 09/30/2023 10:15 AM WAITER/WAITRESS BAR Ancillary Procedure [address] [address] 09/30/2023 9:10 AM WAITER/WAITRESS BAR Office Visit [address] [address] Brenda Rush, Diabetes (diabetes check); Lump (lump/bump at base of neck in front); Results (discuss increased blood pressure and Jardiance) 09/30/2023 Travel 09/28/[address] [address] Brenda Rush DO Refill Request; JARDIANCE 09/21/2023 Orders Only [facility] Scanner 1 scan: (1-Ord) [facility], 09/21/2023 09/08/[address] [address] Lulu Cano MD Refill Request (OMEPRAZOLE 20MG CAPSULES) 08/29/[address] [address] Lulu Cano MD Refill Request (Gabapentin 300mg capsules ) 08/18/[address] [address] Lulu Cano MD Refill Request (B-D PEN NDL MINI [id number]) from Last 3 Months Immunizations Name Administration Dates Next Due COVID-19 Vaccine Spikevax (M oderna 50mcg/0.5mL) 12YO+ 2443-1232 Formula PF 06/30/2023 COVID-19 vaccine (Moderna 100mcg/0.5mL) [...] Comments Blood Pressure 128/79 09/30/2023 9:48 AM WAITER/WAITRESS BAR Pulse 96 09/30/2023 9:48 AM WAITER/WAITRESS BAR Temperature 36.9 ??C (98.5 ??F) 05/30/2023 1 0:28 AM CDT Respiratory Rate 18 10/02/2021 8:48 AM WAITER/WAITRESS BAR Oxygen Saturation 100% 09/30/2023 9:32 AM WAITER/WAITRESS BAR Inhaled Oxygen Concentration - - Weight 84.3 kg (185 lb 12.8 oz) 09/30/2023 9:32 AM WAITER/WAITRESS BAR Height 162 cm (5' 3.78) 05/27/2023 11: 24 AM CDT Body Mass Index 32.11 05/27/2023 11:24 AM CDT Plan of Treatment Upcoming Encounters Date Type Department Care Team (Late st Contact Info) Description 12/30/2023 10:20 AM CDT Office Visit [facility] [address] [place] [address] Lulu Cano MD [address] [place] [address] Health Maintenance Due Date Last Done Comments [...] CLAVICLE RIGHT Routine 09/30/2023 10: 21 AM WAITER/WAITRESS BAR Deformity of clavicle LIPID PANEL W REFLEX MEASURED LDL Routine 09/30/2023 9:26 AM WAITER/WAITRESS BAR Type 2 diabetes mellitus with diabetic cataract, with long-term current use of insulin (HC) BASIC METABOLIC PANEL Routine 09/30/2023 9:26 AM WAITER/WAITRESS BAR Type 2 diabetes mellitus with diabetic cataract, with long-term current use of insulin (HC) HEMOGLOBIN A1C Routine 09/30/2023 9:26 AM WAITER/WAITRESS BAR Type 2 diabetes mellitus with diabetic cataract, with long-term current use of insulin (HC) SCAN-EYE EXAM 09/21/2023 12:00 AM WAITER/WAITRESS BAR from Last 3 Months Results * XR CLAVICLE RIGHT (09/30/2023 10:21 AM WAITER/WAITRESS BAR) Anatomical Region Laterality Modality CLAVICLE R, CLAVICLES Computed R adiography 10/01/2023 3:14 PM WAITER/WAITRESS BAR Narrative 10/01/2023 3:14 PM WAITER/WAITRESS BAR For Patients: ??As a result of the [...] 3:14:44 PM (Electronically Signed) Procedure Note Zain Roman, - 10/01/2023 For Patients: As a result [...] W REFLEX MEASURED LDL (09/30/2023 9:26 AM WAITER/WAITRESS BAR) CHOLESTEROL,TOTAL 152 100 - 199 mg/dL 09/30/2023 5:57 PM WAITER/WAITRESS BAR [facility] Comment: Cholesterol, Total Reference Ranges Desirable <200 mg/dL Borderline 200-239 mg/dL High >=240 mg/dL TRIGLYCERIDES 178(H) <150 mg/dL 09/30/2023 5:57 PM WAITER/WAITRESS BAR [facility] HDL CHOLESTEROL 60 >40 mg/dL 5:57 PM WAITER/WAITRESS BAR [facility] NON-HDL CHOLESTEROL 92 <145 mg/dl 09/30/2023 5:57 PM WAITER/WAITRESS BAR [facility] CHOL/HDL RATIO 2.53 <4.50 09/30/2023 5:57 PM WAITER/WAITRESS BAR [facility] LDL CHOLESTEROL 56 <=130 mg/dL 09/30/2023 5:57 PM WAITER/WAITRESS BAR [facility] VLDL CHOLESTEROL 36(H) <=30 mg/dL 09/30/2023 5:57 PM WAITER/WAITRESS BAR [facility] PROVIDER ORDERED STATUS RANDOM 09/30/2023 5:57 PM WAITER/WAITRESS BAR [facility] Blood BLOOD SPECIMEN / Unknown Venipuncture / Unknown 09/30/2023 9:26 AM WAITER/WAITRESS BAR 09/30/2023 9:28 AM WAITER/WAITRESS BAR Brenda Rush DO [facility]STRY [facility] [address] [place] [address], * (ABNORMAL) HEMOGLOBIN A1C MONITORING (POCT) (09/30/2023 9:26 AM WAITER/WAITRESS BAR) HEMOGLOBIN A1C MONITORING (POCT) 9.6(H) <=6.4 % 09/30/2023 9:44 AM WAITER/WAITRESS BAR [facility] Blood BLOOD SPECIMEN / Unknown Venipuncture / Unknown 09/30/2023 9:26 AM WAITER/WAITRESS BAR 09/30/2023 9:28 AM WAITER/WAITRESS BAR Narrative [facility] - 09/30/2023 9:44 AM WAITER/WAITRESS BAR ? (<=6.9%) ? Indicates good control ? (7.0% to 7.9%) ? Indicates fair control ? (>=8.0%) ? Indicates poor control ?? NOTE: ??These thresholds are guidelines and ?individual targets may vary. Falsely low levels may be seen with: Recent Transfusion, Recent Significant Blood Loss, Hemolytic Diseases, or Falsely elevated levels may be seen with: Untreated Anemias, Splenectomy ? Brenda Rush DO CHEMISTRY [facility] [address] [place] [address], * (ABNORMAL) BASIC METABOLIC PANEL (09/30/2023 9:26 AM WAITER/WAITRESS BAR) SODIUM 137 136 - 145 mmol/L 09/30/2023 5:57 PM [facility] POTASSIUM 4.5 3.5 - 5.1 mmol/L 09/30/2023 5:57 PM [facility] CHLORIDE 101 98 - 107 mmol/L 09/30/2023 5:57 PM [facility] CO2,TOTAL 24 22 - 29 mmol/L 09/30/2023 5:57 PM [facility] ANION GAP 12 5 - 18 09/30/2023 5:57 PM [facility] GLUCOSE 198(H) 70 - 99 mg/dL 09/30/2023 5:57 PM [facility] CALCIUM 9.9 8.8 - 10.2 mg/dL 09/30/2023 5:57 PM [facility] BUN 16 8 - 23 mg/dL 09/30/2023 5:57 PM [facility] CREATININE 0.68 0.50 - 0.90 mg/dL 09/30/2023 5:57 PM WAITER/WAITRESS BAR [facility] BUN/CREAT RATIO 24(H) 10 - 20 5:57 PM WAITER/WAITRESS BAR [facility] eGFR >90 >90 mL/min/1.7 3m2 09/30/2023 5:57 PM WAITER/WAITRESS BAR [facility] Comment:As of 2021, eG FR is calculated by the CKD-EPI creatinine equation without race adjustment. ??eGFR can be influenced by muscle mass, exercise, and diet. ??The reported eGFR is an estimation only and is only applicable if the renal function is stable. Blood BLOOD SPECIMEN / Unknown Venipuncture / Unknown 09/30/2023 9:26 AM WAITER/WAITRESS BAR 09/30/2023 9:28 AM WAITER/WAITRESS BAR Brenda Rush DO CHEMISTRY [facility] [address] [place] [address], [place] * SCAN-EYE EXAM (09/21/2023 12:00 AM WAITER/WAITRESS BAR) Scanner OTHER from Last 3 Months Advance Directives Documents on File Type Date Recorded Patient Relief Cook Expl anation Healthcare Directive 09/25/2015 3:50 PM [place], 05/06/2015 Care Teams Jewelry Sorter Relationship Specialty Start Date End Date Lulu Cano MD [address] [place] [address] PCP - General Family Practice 04/11/23
== END 2023-10-20 11:03 | disposition home or self-care (01) ==
LOC: WOUND 11:02
PROVIDERS: PCP Family Medicine; Visit Provider Nurse Practitioner Family
DX: E11.621 Type 2 diabetes mellitus with foot ulcer (principal); L97.522 Non-pressure chronic ulcer of other part of left foot with fat layer exposed; Z79.4 Long term (current) use of insulin
CPT/HCPCS: 97597

== ENCOUNTER 2023-10-27 10:33 | Outpatient (CLI) | payer MEDICAID, SELFPAY ==
--- OUTSIDE RECORDS SUMMARY | 2023-10-27 10:35 | XMS_ITS | Clinical Summary ---
Author Name Unknown Organization [employer] [facility] [employer] [facility] Address [place], [place] [address] Care Team Providers Care Network Liaison Name Role Phone Lulu Cano MD Primary [...] flash glucose scanning reader (FreeStyle Chente 2 [place]) miscIndications:Unco ntrolled type 2 diabetes mellitus, with [...] Muscle Spasm. 90 Tablet 1 2 Active insulin lispro, U-100, (HUMALOG KWIKPEN; ADMELOG SOLOSTAR) 100 unit/mL inpn penIndications:Type 2 diabetes mellitus with other specified complication, with long-term current use of insulin (HC) INJECT 5 UNITS WITH DINNER PLUS CORRECTION DOSE OF 1:50 OVER 150, UP TO 45 UNITS DAILY 15 mL 1 3 Active Insulin [place], Disposable, (bd insulin pen needle uf mini) 31 gauge x 16Indications:Lynn gonzalez type 2 with atherosclerosis of arteries [...] Product desired: LANTUS SOLOSTAR 0 4 Active continuous glucose monitor SENSOR KIT (FreeStyle Chente 2 Sensor)Indications:T ype 2 diabetes mellitus with other specified complication, with long-term current use of insulin (HC) To be used to read blood sugars per political consultant's directions. 6 Each 3 4 Active FreeStyle Chente 2 SensorIndications:Ty pe 2 diabetes mellitus with other specified complication, with long-term current use of insulin (HC) CHANGE SENSOR EVERY 14 DAYS 6 Each 3 3 10/26/19 24 Discontinu ed(Reorder (E-cancel not sent)) ofloxacin 0.3 % ophthalmic (OCUFLOX) 0.3 % [...] 06/27/2009 DDD (degenerative disc disease), lumbar 06/27/20 Overview: MRI 2006 L4-5 left disc herniation, L5-S1 disffuse disc bulding. ~ May 30, 2012:L5-S1 transforaminal Work comp epidural steroid injection by Dr. Perdue. Obesity, unspecified 11/29/2007 Tobacco use disorder 08/18/2007 Other and unspecified hyperlipidemia 08/18/2007 Dysthymic disorder 06/19/2007 Resolved Problems Problem Noted Date Diagnosed Date Resolved Date Anticoagulation monitoring, INR range 2.5-3.5 04/17/20 14 04/17/2014 Pain medication agreement 11/26/2011 Overview: Bryce adjusted per [facility] Signed Electronically: Angelo Perdue M.D. . . . 9:13 AM 03/25/2014 Type II or unspecified type diabetes mellitus without mention of complication, not stated as uncontrolled 04/28/2006 07/14/2017 Encounters Date Type Department Care Team Description 10/25/[address] [address] Lulu Cano MD Refill Request ([employer] Chente 2 reader) 10/03/[address] [address] Brenda Rush, Results 09/30/2023 10:15 AM AUTO DRIVER Ancillary Procedure [address] [address] 09/30/2023 9:10 AM AUTO DRIVER Office Visit [address] [address] Brenda Rush, Diabetes (diabetes check); Lump (lump/bump at base of neck in front); Results (discuss increased blood pressure and Jardiance) 09/30/2023 Travel 09/28/[address] [address] Brenda Rush DO Refill Request; JARDIANCE 09/21/2023 Orders Only [facility] Scanner 1 scan: (1-Ord) [facility], 09/21/2023 09/08/[address] [address] Lulu Cano MD Refill Request (OMEPRAZOLE 20MG CAPSULES) 08/29/2023 Refill [facility] [address] [facility] [facility] [address] Lulu Cano MD Refill Request (Gabapentin 300mg capsules ) 08/18/2023 Refill [facility] [address] [facility] [facility] [address] Lulu Cano MD Refill Request (B-D PEN NDL MINI [id number]) from Last 3 Months Immunizations Name Administration Dates Next Due COVID-19 Vaccine Spikevax (M oderna 50mcg/0.5mL) 12YO+ 5577-4508 Formula PF 06/30/2023 COVID-19 vaccine (Moderna 100mcg/0.5mL) [...] Comments Blood Pressure 128/79 09/30/2023 9:48 AM AUTO DRIVER Pulse 96 09/30/2023 9:48 AM AUTO DRIVER Temperature 36.9 ??C (98.5 ??F) 05/30/2023 1 0:28 AM CDT Respiratory Rate 18 10/02/2021 8:48 AM AUTO DRIVER Oxygen Saturation 100% 09/30/2023 9:32 AM AUTO DRIVER Inhaled Oxygen Concentration - - Weight 84.3 kg (185 lb 12.8 oz) 09/30/2023 9:32 AM AUTO DRIVER Height 162 cm (5' 3.78) 05/27/2023 11: 24 AM CDT Body Mass Index 32.11 05/27/2023 11:24 AM CDT Plan of Treatment Upcoming Encounters Date Type Department Care Team (Late st Contact Info) Description 12/30/2023 10:20 AM CDT Office Visit [facility] [address] [place] [address] Lulu Cano MD [address] [facility] [address] Health Maintenance Due Date Last Done Comments [...] CLAVICLE RIGHT Routine 09/30/2023 10: 21 AM AUTO DRIVER Deformity of clavicle LIPID PANEL W REFLEX MEASURED LDL Routine 09/30/2023 9:26 AM AUTO DRIVER Type 2 diabetes mellitus with diabetic cataract, with long-term current use of insulin (HC) BASIC METABOLIC PANEL Routine 09/30/2023 9:26 AM AUTO DRIVER Type 2 diabetes mellitus with diabetic cataract, with long-term current use of insulin (HC) HEMOGLOBIN A1C Routine 09/30/2023 9:26 AM AUTO DRIVER Type 2 diabetes mellitus with diabetic cataract, with long-term current use of insulin (HC) SCAN-EYE EXAM 09/21/2023 12:00 AM AUTO DRIVER from Last 3 Months Results * XR CLAVICLE RIGHT (09/30/2023 10:21 AM AUTO DRIVER) Anatomical Region Laterality Modality CLAVICLE R, CLAVICLES Computed R adiography 10/01/2023 3:14 PM AUTO DRIVER Narrative 10/01/2023 3:14 PM AUTO DRIVER For Patients: ??As a result of the [...] W REFLEX MEASURED LDL (09/30/2023 9:26 AM AUTO DRIVER) CHOLESTEROL,TOTAL 152 100 - 199 mg/dL 09/30/2023 5:57 PM AUTO DRIVER [facility] Comment: Cholesterol, Total Reference Ranges Desirable <200 mg/dL Borderline 200-239 mg/dL High >=240 mg/dL TRIGLYCERIDES 178(H) <150 mg/dL 09/30/2023 5:57 PM AUTO DRIVER [facility] HDL CHOLESTEROL 60 >40 mg/dL 5:57 PM AUTO DRIVER [facility] NON-HDL CHOLESTEROL 92 <145 mg/dl 09/30/2023 5:57 PM AUTO DRIVER [facility] CHOL/HDL RATIO 2.53 <4.50 09/30/2023 5:57 PM AUTO DRIVER [facility] LDL CHOLESTEROL 56 <=130 mg/dL 09/30/2023 5:57 PM AUTO DRIVER [facility] VLDL CHOLESTEROL 36(H) <=30 mg/dL 09/30/2023 5:57 PM AUTO DRIVER [facility] PROVIDER ORDERED STATUS RANDOM 09/30/2023 5:57 PM AUTO DRIVER [facility] Blood BLOOD SPECIMEN / Unknown Venipuncture / Unknown 09/30/2023 9:26 AM AUTO DRIVER 09/30/2023 9:28 AM AUTO DRIVER Brenda Rush DO CHEMISTRY Performing Organization Address [facility]/ZIP Co de Phone Number [facility] [address] [place] [address], [place] * (ABNORMAL) HEMOGLOBIN A1C MONITORING (POCT) (09/30/2023 9:26 AM AUTO DRIVER) Pathologist [facility] HEMOGLOBIN A1C MONITORING (POCT) 9.6(H) <=6.4 % 09/30/2023 9:44 AM AUTO DRIVER [facility] Blood BLOOD SPECIMEN / Unknown Venipuncture / Unknown 09/30/2023 9:26 AM AUTO DRIVER 09/30/2023 9:28 AM AUTO DRIVER Narrative [facility] - 09/30/2023 9:44 AM AUTO DRIVER ? (<=6.9%) ? Indicates good control ? [...] Brenda Rush DO CHEMISTRY Performing Organization Address [facility] de Phone Number [facility] [address] [place] [address], [place] [phone] * (ABNORMAL) BASIC METABOLIC PANEL (09/30/2023 9:26 AM AUTO DRIVER) [facility] SODIUM 137 136 - 145 mmol/L 09/30/2023 5:57 PM AUTO DRIVER [facility] POTASSIUM 4.5 3.5 - 5.1 mmol/L 09/30/2023 5:57 PM AUTO DRIVER [facility] CHLORIDE 101 98 - 107 mmol/L 09/30/2023 5:57 PM AUTO DRIVER [facility] CO2,TOTAL 24 22 - 29 mmol/L 09/30/2023 5:57 PM [facility] ANION GAP 12 5 - 18 09/30/2023 5:57 PM [facility] GLUCOSE 198(H) 70 - 99 mg/dL 09/30/2023 5:57 PM [facility] CALCIUM 9.9 8.8 - 10.2 mg/dL 09/30/2023 5:57 PM [facility] BUN 16 8 - 23 mg/dL 09/30/2023 5:57 PM [facility] CREATININE 0.68 0.50 - 0.90 mg/dL 09/30/2023 5:57 PM [facility] BUN/CREAT RATIO 24(H) 10 - 20 5:57 PM [facility] eGFR >90 >90 mL/min/1.7 3m2 09/30/2023 5:57 PM [facility] Comment:As of 2021, eG FR is calculated by the CKD-EPI creatinine equation without race adjustment. ??eGFR can be influenced by muscle mass, exercise, and diet. ??The reported eGFR is an estimation only and is only applicable if the renal function is stable. Blood BLOOD SPECIMEN / Unknown Venipuncture / Unknown 09/30/2023 9:26 AM AUTO DRIVER 09/30/2023 9:28 AM AUTO DRIVER Brenda Rush DO CHEMISTRY [facility] [address] [place] [address], * SCAN-EYE EXAM (09/21/2023 12:00 AM AUTO DRIVER) Scanner OTHER from Last 3 Months Advance Directives Documents on File Type Date Recorded Patient Master Welder Expl anation Healthcare Directive 09/25/2015 3:50 PM [facility], 05/06/2015 Care Teams Network Liaison Relationship Specialty Start Date End Date Lulu Cano MD [address] [place] [address] PCP - General Family Practice 04/11/23
== END 2023-10-27 10:34 | disposition home or self-care (01) ==
LOC: WOUND 10:33
PROVIDERS: PCP Family Medicine; Visit Provider Nurse Practitioner Family
DX: E11.621 Type 2 diabetes mellitus with foot ulcer (principal); L97.522 Non-pressure chronic ulcer of other part of left foot with fat layer exposed; Z79.4 Long term (current) use of insulin
CPT/HCPCS: 97597

== ENCOUNTER 2023-11-10 10:29 | Outpatient (CLI) | payer MEDICAID, SELFPAY | END 2023-11-10 10:30 | disposition home or self-care (01) | LOC: WOUND 10:29 | PROVIDERS: PCP Family Medicine; Visit Provider Nurse Practitioner Family | DX: E11.621 Type 2 diabetes mellitus with foot ulcer (principal); L97.522 Non-pressure chronic ulcer of other part of left foot with fat layer exposed; Z79.4 Long term (current) use of insulin | CPT/HCPCS: 97597 ==

== ENCOUNTER 2023-11-24 11:29 | Outpatient (CLI) | payer MEDICAID, SELFPAY | END 2023-11-24 11:30 | disposition home or self-care (01) | LOC: WOUND 11:29 | PROVIDERS: PCP Family Medicine; Visit Provider Nurse Practitioner Family | DX: E11.621 Type 2 diabetes mellitus with foot ulcer (principal); L97.522 Non-pressure chronic ulcer of other part of left foot with fat layer exposed; Z79.4 Long term (current) use of insulin | CPT/HCPCS: 97597 ==

== ENCOUNTER 2023-12-08 08:16 | Outpatient (CLI) | payer MEDICAID, SELFPAY | END 2023-12-08 08:17 | disposition home or self-care (01) | LOC: WOUND 08:16 | PROVIDERS: PCP Family Medicine; Visit Provider Nurse Practitioner Family | DX: E11.621 Type 2 diabetes mellitus with foot ulcer (principal); L97.528 Non-pressure chronic ulcer of other part of left foot with other specified severity; Z79.4 Long term (current) use of insulin | CPT/HCPCS: G0463 ==

== ENCOUNTER 2024-04-19 20:11 | Emergency (ER) | payer MEDICAID, SELFPAY ==
--- OUTSIDE RECORDS SUMMARY | 2024-04-19 20:16 | XMS_ITS | Clinical Summary ---
Author Organization [facility] Address [place], [place] [address] Care Team Providers Care Assistant Corporate Controller Name Role Phone Lulu Cano MD Primary Care Provider Allergies Active Allergy Reactions Criticality Noted Date Comments Bacitracin Rash 05/02/2007 Doxycycline Rash 05/02/2007 Erythromycin Vaginal Irritation 06/02/2007 Developed a severe yeast infection Ibuprofen Rash,Bleeding 05/02/2007 Oxycodone-Acetaminophen Hives,Wheezing 05/02/20 07 Medications Medication Sig Dispensed Refills Start Date End Date Status MULTIVITAMIN TAB take 1 tablet by oral route once daily with food 0 05/18/20 07 Active CALCIUM + D 600 MG (1,500)-200 UNIT TAB daily 0 0 08/02/20 08 Active medication order composerIndications: Type 2 diabetes mellitus without complication, with long-term current use of insulin (HC) 1 unit every 1 year. Diabetes with preulcerative callous and hammertoe deformity 1 unit 0 06/17/20 16 Active aspirin (ECOTRIN) 81 mg enteric coated tabletIndications:Un controlled type 2 diabetes mellitus without complication, with long-term current use of insulin Take 1 tablet by mouth once daily with a meal. 30 tablet 11 07/25/20 17 Active flash glucose scanning reader (FreeStyle Chente 2 [place]) miscIndications:Unco ntrolled type 2 diabetes mellitus, with long-term current use of insulin As directed. 1 Each 12/31/19 21 Active diclofenac topical (VOLTAREN) 1 % gelIndications:Bilat eral hand pain Apply 2 g topically to affected area(s) 4 times daily. 200 g 1 07/20/20 21 Active blood sugar diagnostic (Blood Glucose Test) stripIndications:Unc ontrolled type 2 diabetes mellitus, with long-term current use of insulin Free style chente 2 strips. For use when sensor fails.Test 4-6 times per day. 100 Each 07/20/20 21 Active blood-glucose meterIndications:Unc ontrolled type 2 diabetes mellitus, with long-term current use of insulin Dispense meter, test strips(#100), lancets(#100) covered by pt ins. E11.9 NIDDM type II - Test 2 times/day. 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 90 Tablet 2 09/10/20 23 Active ammonium lactate 12% (LACHYDRIN) 12 % cream Apply topically to affected area(s) one time. daily 08/25/20 23 Active empagliflozin (JARDIANCE) 25 mg tabletIndications:Ty pe 2 diabetes mellitus with other specified complication, with long-term current use of insulin (HC) Take 1 Tablet (25 mg) by mouth once daily. Take in the morning. 90 Tablet 1 09/30/19 24 Active simvastatin (ZOCOR) 20 mg tabletIndications:Hy perlipidemia, unspecified hyperlipidemia type TAKE 1 TABLET(20 MG) BY MOUTH AT BEDTIME 90 Tablet 1 12/15/19 24 Active continuous glucose monitor SENSOR KIT (FreeStyle Chente 2 Sensor)Indications:T ype 2 diabetes mellitus with other specified complication, with long-term current use of insulin (HC) To be used to read blood sugars per municipal maintenance worker's directions. 6 Each 3 12/15/19 24 Active insulin glargine, U-100, (Lantus Solostar U-100 Insulin) 100 unit/mL (3 mL) penIndications:Type 2 diabetes mellitus with diabetic microalbuminuria, with long-term current use of insulin (HC) Inject 50 units subcutaneous before bedtime. Increase by 2 units every 2-3 days until fasting BG 130-150. Max dose of 65 units. Product desired: LANTUS SOLOSTAR 20 mL 3 01/05/20 24 Active cyclobenzaprine (FLEXERIL) 10 mg tabletIndications:DD D (degenerative disc disease), lumbar TAKE 1 TABLET(10 MG) BY MOUTH AT BEDTIME NEEDED FOR MUSCLE SPASM 90 Tablet 1 02/16/20 24 Active semaglutide (Ozempic) 2 mg/3 mL subcutaneous penIndications:Type 2 diabetes mellitus with other specified complication, with long-term current use of insulin (HC) Inject 0.25 mg subcutaneous once weekly for 28 days, THEN 0.5 mg once weekly for 28 days. 6 mL 04/05/20 24 024 Active semaglutide (OZEMPIC) 1 mg/dose (4 mg/3 mL) subcutaneous penIndications:Type 2 diabetes mellitus with other specified complication, with long-term current use of insulin (HC) Inject 1 mg subcutaneous once weekly for 28 days. 3 mL 05/31/20 24 024 Active semaglutide (Ozempic) 2 mg/dose (8 mg/3 mL) subcutaneous penIndications:Type 2 diabetes mellitus with other specified complication, with long-term current use of insulin (HC) Inject 2 mg subcutaneous once weekly. 9 mL 3 06/28/20 24 Active fluticasone (50 mcg per actuation) nasal solution (FLONASE)Indications :Seasonal allergies Inhale 2 Sprays to both nostrils once daily. 16 g 5 04/05/20 24 Active olopatadine (PATANOL) 0.1 % ophthalmic solutionIndications: Seasonal allergies Place 1 Drop into both eyes two times daily. 5 mL 11 04/05/20 24 Active loratadine (CLARITIN) 10 mg tabletIndications:Se asonal allergies Take 1 Tablet (10 mg) by mouth once daily. 100 Tablet 3 04/05/20 24 Active gabapentin (NEURONTIN) 300 mg capsuleIndications:D DD (degenerative disc disease), lumbar TAKE 3 CAPSULES(900 MG) BY MOUTH TWICE DAILY 540 Capsule 1 04/13/20 24 Active gabapentin (NEURONTIN) 300 mg capsuleIndications:D DD (degenerative disc disease), lumbar Take 3 Capsules (900 mg) by mouth two times daily. 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 03/2024 NIL/HPV negative Plan: routine screening Anticoagulation monitoring, INR range 2.5-3.5 04/17/20 14 04/17/2014 Pain medication agreement 11/26/2011 Overview: [place] adjusted per [facility] Signed Electronically: Angelo Perdue M.D. . . . 9:13 AM 03/25/2014 Type II or unspecified type diabetes mellitus without mention of complication, not stated as uncontrolled 04/28/2006 07/14/2017 Encounters Date Type Department Care Team Description 04/12/2024 Telephone [facility] [address] [facility] [address] Lulu Cano MD Prior Authorization (semaglutide (Ozempic) 2 mg/dose (8 mg/3 mL) subcutaneous pen Approved 04/12/2024 - 04/12/2025 [id number]) 04/11/2024 Refill [facility] [address] [facility] [address] Lulu Cano MD Refill Request (Gabapentin) 04/05/2024 10:50 AM CDT Office Visit [facility] [address] [facility] [address] Lulu Cano MD Physical (Pap/) 04/05/2024 Travel 03/14/2024 Orders Only [facility] Scanner 1 scan: (1-Ord) INCOMING RECORDS-[facility]AB[facility], [facility], 03/14/2024 02/14/2024 Refill [facility] [address] [facility] [address] Lulu Cano MD Refill Request (Cyclobenzaprine) from Last 3 Months Immunizations Name Administration Dates Next Due COVID-19 Vaccine Spikevax (M oderna 50mcg/0.5mL) 12YO+ [id number] Formula PF 06/30/2023 COVID-19 vaccine (Moderna 100mcg/0.5mL) [...] (age > = 7 Years) 07/06/2005 Tdap 04/05/2024,12/26/2013 Zoster (Zostavax-ZVL, live) 03/15/2012 Family History Medical [...] Answer Date Recorded PHQ-2 TOTAL SCORE 0 04/05/2024 Social Connections Answer Date Recorded Frequency of [...] Sign Reading Time Taken Comments Blood Pressure 122/78 04/05/2024 11:01 AM CDT Pulse 92 04/05/2024 11:01 AM CDT Temperature 36.9 ??C (98.5 ??F) 05/30/2023 10:28 AM C DT Respiratory Rate 18 10/02/2021 8:48 AM AUTOMOBILE CONTRACT CLERK Oxygen Saturation 100% 04/05/2024 11:01 AM CDT Inhaled Oxygen Concentration - - Weight 80.3 kg (177 lb) 04/05/2024 11:01 AM CDT Height 166 cm (5' 5.35) 04/05/2024 11:01 AM CDT Body Mass Index 29.14 04/05/2024 11:01 AM CDT Plan of Treatment Upcoming Encounters Date Type Department Care Team (Late st Contact Info) Description 07/09/2024 10:25 AM CDT Office Visit [facility] [address] [place] [address] Lulu Cano MD [address] [place] [address] Health Maintenance Due Date Last Done Comments Fecal testing sDNA-FIT ([place] guard) for age 45-[address] (for lung CA) ag e 50-80 2010 Zoster (shingles) series for age 50+ (2 of 3) 05/10/2012 03/15/2012 Mammogram for age 45-75 12/19/2021 12/20/19 21, 03/27/2015, 07/20/2011, Additional history exists Influenza for age 50-64 05/20/2024 06/30/20 23, 07/28/2022, 07/20/2021, Additional history exists BMI (ht and wt on same day) for age 18+ 04/05/2025 04/05/2024, 05/27/2023, 04/11/2023, Additional history exists Depression screening for age 12+ 04/05/2025 04/05/2024, 04/11/2023, 12/08/2021, Additional history exists Pap test for age 21-65 04/05/2027 , 04/05/2024, 12/01/2020, Additional history exists Lipids for age 45-75 09/30/2028 09/30/2023, 12/07/2021, 12/01/2020, Additional history exists Tetanus booster 04/05/2034 04/05/2024, 04/0 05/2014, 07/06/2005, Additional history exists HIV for age 15-65 Completed 07/14/2017 Hepatitis C screening for ag e 18-79 Completed 12/01/2020 Pneumococcal series for age 6-64 Completed 07/28/20, 12/26/2013 COVID-19 vaccine series Completed 06/30/20, 07/28/2022, 11/14/2020, Additional history exists Tdap Completed 04/05/2024, 12/26/2013 Procedures Procedure Name Priority Date/Time Associated Diagnosis Comments HEMOGLOBIN A1C Routine 04/05/2024 12:17 PM CDT Type 2 diabetes mellitus with other specified complication, with long-term current use of insulin (HC) IT SECURITY CONSULTANT THIN PREP PAP SCREEN IMAGED Routine 04/05/2024 11:48 AM CDT Screening for malignant neoplasm of cervix HPV THIN PREP Routine 04/05/2024 11:48 AM CDT Screening for malignant neoplasm of cervix SCAN-EYE EXAM 03/14/2024 12:00 AM CDT LIPID PANEL W REFLEX MEASURED LDL Routine 09/30/2023 9:26 AM AUTOMOBILE CONTRACT CLERK Type 2 diabetes mellitus with diabetic cataract, with long-term current use of insulin (HC) XR MAMMO BILAT SCREENING Routine 12/19/2020 9:48 AM CDT Visit for screening mammogram ANTI HCV Routine 12/01/2020 9:11 AM CDT Need for hepatitis C screening test ANTI HIV 1/2 Add On 07/14/2017 4:14 PM CDT Screening for HIV (human immunodeficiency virus) from Last 3 Months or Most Recently Relevant to Health Maintenance Results * (ABNORMAL) HEMOGLOBIN A1C MONITORING (POCT) (04/05/2024 12:17 PM CDT) HEMOGLOBIN A1C MONITORING (POCT) 10.7(H) <=6.4 % 04/05/2024 12:28 PM CDT [facility] Blood BLOOD SPECIMEN / Unknown Venipuncture / Unknown 04/05/2024 12:17 PM CDT 04/05/2024 12:19 PM CDT Narrative [facility] - 04/05/2024 12:28 PM CDT ? (<=6.9%) ? Indicates good control ? (7.0% to 7.9%) ? Indicates fair control ? (>=8.0%) ? Indicates poor control ?? NOTE: ??These thresholds are guidelines and ?individual targets may vary. Falsely low levels may be seen with: Recent Transfusion, Recent Significant Blood Loss, Hemolytic Diseases, or Falsely elevated levels may be seen with: Untreated Anemias, Splenectomy ? Lulu Cano MD CHEMISTRY Performing Organization Address City/State/[facility] Co va Phone Number [facility] [address] [place] [address], * IT SECURITY CONSULTANT THIN PREP PAP SCREEN IMAGED (04/05/2024 11:48 AM CDT) Case Report Gynecologic Cytology Report ? Case: [id number] ? Authorizing Provider: ??Lulu Cano MD ? Collected: ? 04/05/2024 1148 ? Ordering Location: ? [facility] ?? Received: ?04/05/2024 1337 ? Clinic ? First Screen: ?Ernestina Alvarado ? Rescreen: ?Tiffanie Alanis ? Specimen: ?IT SECURITY CONSULTANT ThinPrep Vial Screening, Cervical ? 04/16/2024 8:13 AM CDT [facility] INTERPRETATION/ RESULT NEGATIVE FOR INTRAEPITHELIAL LESION OR MALIGNANCY (NIL) (none) 04/16/2024 8:13 AM [facility] NISM(S) Shift in brendan suggestive of bacterial vaginosis 04/16/2024 8:13 AM CDT [facility] SPECIMEN ADEQUACY Satisfactory for evaluation No endocervical component seen 04/16/2024 8:13 AM CDT [facility] HPV REQUEST HPV and PAP 04/16/2024 8:13 AM CDT [facility] Date of LMP n/a 04/16/2024 8:13 AM CDT [facility] Last Pap Date 12/01/20 04/16/2024 8:13 AM CDT [facility] Last Pap Result ASCUS 8:13 AM CDT [facility] Abnormal Pap or [place] Bx in last 5 years Yes 04/16/2024 8:13 AM CDT [facility] Menstrual Status Postmenopausal 04/16/2024 8:13 AM CDT [facility] [place] Bx Done Today No 04/16/2024 8:13 AM CDT [facility] Additional Information ASCUS with negative HPV in [address]2004/16/2024 8:13 AM CDT [facility] Comment: Cytology is screened at [facility] - [address], [place] [address] and [facility] - [address] [place] [address] and [facility] - [address] [place] [address] Interpreted at [facility] - [address], [place] [address] Automated Review Successful 04/16/2024 8:13 AM T [facility] Comment:Specimen processed s uccessfully by automated computer lab aide device, ThinPrep Imaging System, [employer] ANCILLARY TESTING IT SECURITY CONSULTANT HPV Ordered, Please see separate report 04/16/2024 8:13 AM T [facility] Note The pap test is a screening technique, not a diagnostic procedure. It is used primarily to screen for squamous cancers and precursor lesions. Published studies have shown that it is subject to both false negative and false positive results. The pap test should not be used as the sole means to diagnose or exclude pre-malignant and malignant lesions. 04/16/2024 8:13 AM CDT [facility] ENTRAL LABORATORY Other (Cervical) Non-Blood / Unknown 04/05/2024 11:48 AM CDT 04/05/2024 1:37 PM CDT Lulu Cano MD PATHOLOGY/CYTOLOGY Performing Organization Address [facility] Co de Phone Number [facility] [address] [place] [address], * HPV HIGH RISK (04/05/2024 11:48 AM CDT) TYPE 16 Negative Negative 04/12/2024 6:00 AM CDT [facility] TYPE 18 Negative Negative 04/12/2024 6:00 AM CDT [facility] OTHER HIGH RISK TYPES Negative Negative 04/12/2024 6:00 AM CDT [facility] Other (Cervical) Non-Blood / Unknown 04/05/2024 11:48 AM CDT 04/09/2024 5:13 PM CDT Narrative [facility] - 04/12/2024 6:00 AM CDT HPV types 16, 18, 31, 33, 35, 39, 45, 51, 52, 56, 58, 59, 66 and 68 DNA were undetectable or below the pre-set threshold. Methodology: [address] 4800 HPV Test Lulu Cano MD MICROBIOLOGY Performing Organization Address [facility] Co de Phone Number [facility] [address] [place] [address], * SCAN-EYE EXAM (03/14/2024 12:00 AM CDT) Scanner OTHER * (ABNORMAL) LIPID PANEL W REFLEX MEASURED LDL (09/30/2023 9:26 AM AUTOMOBILE CONTRACT CLERK) CHOLESTEROL,TOTAL 152 100 - 199 mg/dL 09/30/2023 5:57 PM AUTOMOBILE CONTRACT CLERK [facility] Comment: Cholesterol, Total Reference Ranges Desirable <200 mg/dL Borderline 200-239 mg/dL High >=240 mg/dL TRIGLYCERIDES 178(H) <150 mg/dL 09/30/2023 5:57 PM AUTOMOBILE CONTRACT CLERK [facility] HDL CHOLESTEROL 60 >40 mg/dL 5:57 PM AUTOMOBILE CONTRACT CLERK [facility] NON-HDL CHOLESTEROL 92 <145 mg/dl 09/30/2023 5:57 PM AUTOMOBILE CONTRACT CLERK [facility] CHOL/HDL RATIO 2.53 <4.50 09/30/2023 5:57 PM AUTOMOBILE CONTRACT CLERK [facility] LDL CHOLESTEROL 56 <=130 mg/dL 09/30/2023 5:57 PM AUTOMOBILE CONTRACT CLERK [facility] VLDL CHOLESTEROL 36(H) <=30 mg/dL 09/30/2023 5:57 PM [facility] PROVIDER ORDERED STATUS RANDOM 09/30/2023 5:57 PM [facility] Blood BLOOD SPECIMEN / Unknown Venipuncture / Unknown 09/30/2023 9:26 AM AUTOMOBILE CONTRACT CLERK 09/30/2023 9:28 AM AUTOMOBILE CONTRACT CLERK Brenda Rush DO CHEMISTRY [facility] [address] [place] [address], * XR MAMMO BILAT SCREENING (12/19/2020 9:48 AM CDT) Anatomical Region Laterality Modality BREASTS, Breast Left, Breast Right Bilateral Mammography Impressions 12/19/2020 4:22 PM CDT ??There is no radiographic evidence for malignancy. ??Recommend annual mammograms. MAMMOGRAM ASSESSMENT: ??ACR 1 Negative PATIENTS: You will also receive a letter with your examination results in an easy to read format. ??If you have questions about your results, please contact your referring provider. Narrative 12/19/2020 4:22 PM CDT XR MAMMO BILAT SCREENING [[id number]] CLINICAL HISTORY: ??This is an asymptomatic 60 y.o. patient. INDICATION FOR EXAM: Mammogram Screening. TECHNIQUE: CC & MLO views were obtained. ??This digital study was evaluated with the assistance of Computer-Aided Detection. COMPARISON FILM: Yes 03/27/15 [facility] ?? FINDINGS: ??The breasts are heterogeneously dense, which may obscure small masses. There are no dominant masses, suspicious micro calcifications or areas of architectural distortion. Inés Mccarty MD MAMMO * ANTI HCV (12/01/2020 9:11 AM CDT) HEPATITIS C ANTIBODY Non-React tadeo Non-React tadeo 12/01/2020 3:39 PM CDT [facility] Comment:Antibodies to HCV no t detected; does not exclude the possibility of exposure to HCV. Blood BLOOD SPECIMEN / Unknown Venipuncture / Unknown 12/01/2020 9:11 AM CDT 12/01/2020 9:11 AM CDT Inés Mccarty MD [facility] [address] [place] [address], [place] * ANTI HIV 1/2 (07/14/2017 4:14 PM CDT) Pathologist [facility] HIV-1/HIV-2 ANTIBODY Non-Reacti ve Non-Reacti ve 07/14/2017 8:23 PM CDT [facility] Blood BLOOD SPECIMEN / Unknown Venipuncture / Unknown 07/14/2017 4:14 PM CDT 07/14/2017 4:14 PM CDT Narrative [facility] - 07/14/2017 8:23 PM CDT HIV-1 p24 and HIV-1/HIV-2 Ab not detected Jose Carlos Philip MD [facility] [address] [place] [id number], [place] from Last 3 Months or Most Recently Relevant to Health Maintenance Advance Directives Documents on File Type Date Recorded Patient Patient Financial Services Coordinator Expl anation Healthcare Directive 09/25/2015 3:50 PM [facility], 05/06/2015 Care Teams Assistant Corporate Controller Relationship Specialty Start Date End Date Lulu Cano MD [address] [place] [address] PCP - General Family Practice 04/11/23
[2024-04-19 20:24] VITALS: BP 121/76; PULSE 96; RESP 16; TEMP 36.6; O2SAT 97; BMI 29.3
--- NOTE | 2024-04-19 20:43 | ED_ITS ---
HPI - Arrhythmia/Palpitations General Date Seen: 04/19/24 Chief Complaint: Arrhythmia/Palpitations Stated Complaint: heart racing/pounding, diabetic, new meds Time Seen by Provider: 04/19/24 20:31 History of Present Illness HPI narrative: Patient is a 64-year-old female with history of type 2 diabetes presents with a sense that her heart was racing and pounding hard. She was out working in the garden and had to come into the house. She denies pain or shortness of breath just a pounding sensation in her chest. She has never had this previously. She has a history of polysubstance abuse and history of poorly controlled type 2 diabetes. She was just started on Ozempic 10 days ago and has had two injections. She does notice some excessive burping and nausea but no vomiting. She denies any history of hypertension or arrhythmia. She denies any drug use today. She feels that she did get enough to drink today and did eat lunch like normal. Her blood sugar was [address] Her other medications include simvastatin, Lantus 62 units daily, Jardiance. She is currently on antibiotics for a foot ulcer. Related Data Home Medications ?Medication ?Instructions ?Recorded ?Confirmed cyclobenzaprine 10 mg tablet 10 mg PO HS PRN 09/20/22 08/16/23 flash glucose sensor (FreeStyle 09/20/22 08/16/23 Chente 2 Sensor kit) gabapentin 300 mg capsule 900 mg PO BID 09/20/22 08/16/23 insulin glargine 100 unit/mL (3 40 unit subcut HS 09/20/22 08/16/23 mL) subcutaneous pen (Lantus Solostar U-100 Insulin) insulin lispro 100 unit/mL 10 unit subcut TID 09/20/22 08/16/23 subcutaneous pen omeprazole 20 mg capsule,delayed 20 mg PO DAILY 09/20/22 08/16/23 release pen needle, diabetic 31 gauge x 09/20/22 08/16/23 3/16 (BD Ultra-Fine Mini Pen Needle) simvastatin 20 mg tablet 20 mg PO HS 09/20/22 08/16/23 aspirin 81 mg tablet,delayed 81 mg PO DAILY 04/22/23 08/16/23 release (Ecotrin Low Strength) calcium carbonate 600 mg-vitamin 1 tab PO DAILY 04/22/23 08/16/23 D3 5 mcg (200 unit) tablet empagliflozin 10 mg tablet 10 mg PO DAILY 08/16/23 08/16/23 (Jardiance) Previous Rx's ?Medication ?Instructions ?Recorded amoxicillin 875 mg-potassium 1 tab PO BID #28 tabs 08/18/23 clavulanate 125 mg tablet Allergies Allergy/AdvReac Type Severity Reaction Status Date / Time bacitracin Allergy Verified 08/16/23 15:10 erythromycin base Allergy Verified 08/16/23 15:10 ibuprofen Allergy Verified 08/16/23 15:10 oxycodone [From Percocet] Allergy Verified 08/16/23 15:10 Review of Systems Narrative: Review of systems is outlined above otherwise noted to be negative. Her PCP is Dr[facility]o at [facility]. [facility] Medical History (Updated 04/19/24 @ 21:54 by Jese Hines MD) Type 2 diabetes mellitus, with long-term current use of insulin ?E11.9 - Type 2 diabetes mellitus without complications (ICD-10) ?Z79.4 - watermaster (current) use of insulin (ICD-10) Mixed hyperlipidemia ?E78.2 - Mixed hyperlipidemia (ICD-10) GERD (gastroesophageal reflux disease) ?K21.9 - Gastro-esophageal reflux disease without esophagitis (ICD-10) Uncontrolled type 2 diabetes mellitus Noncompliance with diet and medication regimen ?Z91.199 - Patient's noncompliance with other medical treatment and regimen due to unspecified reason (ICD-10) ?Z91.148 - Patient's other noncompliance with medication regimen for other reason (ICD-10) Marijuana abuse ?F12.10 - Cannabis abuse, uncomplicated (ICD-10) Amphetamine abuse ?F15.10 - Other stimulant abuse, uncomplicated (ICD-10) Lumbar disc herniation ?M51.26 - Other intervertebral disc displacement, lumbar region (ICD-10) DDD (degenerative disc disease) Other and unspecified hyperlipidemia ?E78.5 - Hyperlipidemia, unspecified (ICD-10) Dysthymic disorder ?F34.1 - Dysthymic disorder (ICD-10) Surgical History History of total right hip arthroplasty ?Z96.641 - Presence of right artificial hip joint (ICD-10) History of endometrial ablation ?Z98.890 - Other specified postprocedural states (ICD-10) Hx of tonsillectomy ?Z90.89 - Acquired absence of other organs (ICD-10) History of carpal tunnel release ?Z98.890 - Other specified postprocedural states (ICD-10) Social History Smoking Status: Current every day smoker What tobacco products do you use: cigarettes Years smoked: 50 Do you use any of these nicotine containing products: None How often do you have a drink containing alcohol: never How often do you have six or more drinks on one occasion: Never AUDIT-C Alcohol total score: 0 Non-prescribed substance use: marijuana (any form) and amphetamines/methamphetamines Caffeine: Yes Are you using contraception or practicing any form of control: No service: No Exam Narrative: Exam Narrative: Vitals noted. HEENT: Conjunctiva clear. Posterior pharynx is clear without erythema or exudate. Neck is supple without adenopathy, thyromegaly. Lungs: Clear to auscultation in all tee. No wheezes, rales, rhonchi. Heart: Regular rate and rhythm without murmur. Abdomen: Soft and nontender. No guarding, rigidity, rebound. Bowel sounds are normal. No palpable masses. Extremities: No cyanosis or edema. Good distal pulses. Skin: No abnormalities noted of the exposed skin. Neurologic: Awake, alert, fully oriented. Neurologic exam is nonfocal. She has stocking-glove distribution neuropathy. Const: Vital Signs, click to edit/add: Vital Signs - 24 hr 04/19/24 20:24 04/19/24 20:51 Temperature 97.8 F Pulse Rate [Pulse Oximeter] 96 89 Respiratory Rate 16 16 Blood Pressure [Ri ght Upper Arm] 121/76 115/70 Pulse Oximetry 97 97 Oxygen Delivery Me thod Room Air Room Air Course Course ED Course: Patient seen and examined. EKG shows normal sinus rhythm with a rate of 90. No acute ST or T-wave changes. Labs are ordered. Reevaluation(s) Reevaluation #1: CBC is normal other than hemoglobin of 11.7. Basic metabolic panel is normal other than a glucose of 145. Troponin is negative. TSH is pending. Patient was able to nap and feels considerably better. She was watched on a cafeteria or lunchroom checker her heart rate never exceeded 100. Her blood pressure is normal. She believes that she is feeling poorly because the Ozempic and we did discuss the typical side effects which are mainly GI. She is burping excessively but is not having any other significant GI issues. She will discuss with her PCP whether she wants to continue that medication. She is reassured tonight by her normal cardiac evaluation. Vital Signs Vital signs: Initial Vital Signs Temperature 97.8 F 04/19/24 20:24 Temperature Source Temporal Artery Scan 04/19/24 20:24 Pulse Rate 96 04/19/24 20:24 Respiratory Rate 16 04/19/24 20:24 Blood Pressure 121/76 04/19/24 20:24 Blood Pressure Mean 91 04/19/24 20:24 Blood Pressure Position Sitting 04/19/24 20:24 Pulse Oximetry 97 04/19/24 20:24 Oxygen Delivery Method Room Air 04/19/24 20:24 Vital Signs Temperature 97.8 F 04/19/24 20:24 Pulse Rate 96 04/19/24 20:24 Respiratory Rate 16 04/19/24 20:24 Blood Pressure 121/76 04/19/24 20:24 Pulse Oximetry 97 04/19/24 20:24 Oxygen Delivery Method Room Air 04/19/24 20:24 Temperature 97.8 F 04/19/24 20:24 Pulse Rate 89 04/19/24 20:51 Respiratory Rate 16 04/19/24 20:51 Blood Pressure 115/70 04/19/24 20:51 Pulse Oximetry 97 04/19/24 20:51 Oxygen Delivery Method Room Air 04/19/24 20:51 MDM - Arrhythmia/Palpitations Lab Data Labs: Lab Results 04/19/24 Range/Units 20:50 WBC 7.61 (4.50-11.00) K/uL RBC 4.23 (4.00-5.20) m/uL Hgb 11.7 L (12.0-16.0) gm/dL Hct 37.6 (33.0-51.0) % MCV 89 (80-100) fL MCH 28 (26-34) pg MCHC 31 L (32-36) gm/dL RDW Coeff of Yumiko 13.6 (11.5-15.5) % Plt Count 261 (140-440) K/uL Neut % (Auto) 55.8 (42.0-72.0) % Lymph % (Auto) 33.8 (20-44) % [place] % (Auto) 5.5 (0.0-11.0) % Eos % (Auto) 4.3 (0.0-7.0) % Baso % (Auto) 0.5 (0.0-3.0) % Neut # (Auto) 4.24 (1.7-7.0) K/uL Lymph # (Auto) 2.57 (0.90-2.90) K/uL [place] # (Auto) 0.40 (0.00-0.90) K/UL Eos # (Auto) 0.33 (0.00-0.50) K/uL Baso # (Auto) 0.04 (0.00-0.30) K/uL Abs Immat Gran (auto) 0.01 (0.00-0.30) K/uL Imm/Tot Granulo (auto) 0.1 % Sodium 136 (135-149) mmol/L Potassium 4.2 (3.6-5.1) mmol/L Chloride 103 (96-114) mmol/L Carbon Dioxide 26 (20-32) mmol/L Anion Gap 7 (7-15) mEq/L BUN 18 (7-30) mg/dL Creatinine 0.6 (0.5-1.5) mg/dL Estimated Creat Clear 51.14 Estimated GFR 100 ml/min Glucose 145 H (60-115) mg/dL Calcium 9.5 (8.4-10.6) mg/dL Troponin I < 0.01 L (0.01-0.04) ng/mL Discharge Plan Discharge Clinical Impression: Palpitations Patient Disposition: Home, Self-Care Condition: Stable Additional Instructions: Continue your current medications. Discuss with your PCP whether you want to continue the Ozempic or not. There is nothing in your cardiac evaluation tonight that would force you to discontinue that medication. Stay hydrated. Prescriptions: No Action Jardiance 10 mg tablet 10 mg PO DAILY amoxicillin-pot clavulanate 875-125 mg tablet 1 tab PO BID Qty: 28 0RF Rx Instructions: take 1 tab twice daily for 14 days aspirin [Ecotrin Low Strength] 81 mg tablet,delayed release (DR/EC) 81 mg PO DAILY calcium carbonate-vitamin D3 600 mg-5 mcg (200 unit) tablet 1 tab PO DAILY cyclobenzaprine 10 mg tablet 10 mg PO HS PRN simvastatin 20 mg tablet 20 mg PO HS gabapentin 300 mg capsule 900 mg PO BID omeprazole 20 mg capsule,delayed release(DR/EC) 20 mg PO DAILY insulin lispro 100 unit/mL insulin pen 10 unit SUBCUT TID (DME) pen needle, diabetic [BD Ultra-Fine Mini Pen Needle] 31 gauge x 3/16 needle MISCELLANEOUS Patient Comments: REMOVE THE 2 COVERS ON THE INSULIN PEN NEEDLE BEFORE ADMINISTERING INSULIN DOSE. insulin glargine [Lantus Solostar U-100 Insulin] 100 unit/mL (3 mL) insulin pen 40 unit SUBCUT HS Patient Comments: INJECT 40 UNITS SUBCUTANEOUS BEFORE BEDTIME. (DME) FreeStyle Chente 2 Sensor Kit MISCELLANEOUS Patient Comments: CHANGE SENSOR EVERY 14 DAYS Follow Up/Referrals: Lulu Cano MD [Primary Care Provider] - Stand Alone Forms: [facility] Info Instructions
[2024-04-19 20:51] VITALS: BP 115/70; PULSE 89; RESP 16; O2SAT 97
[2024-04-19 21:02] LABS: Basophils Absolute Auto 0.04 K/uL (0.00-0.30); Basophils Percent Auto 0.5 % (0.0-3.0); Eosinophils Absolute Auto 0.33 K/uL (0.00-0.50); Eosinophils Percent Auto 4.3 % (0.0-7.0); Hematocrit 37.6 % (33.0-51.0); Hemoglobin* 11.7 gm/dL (12.0-16.0); Immature Granulocytes Abs Auto 0.01 K/uL (0.00-0.30); Immature Granulocytes Pct Auto 0.1 %; Lymphocytes Absolute Auto 2.57 K/uL (0.90-2.90); Lymphocytes Percent Auto 33.8 % (20-44); Mean Corpuscular HGB Conc 31 gm/dL (32-36); Mean Corpuscular Hemoglobin 28 pg (26-34); Mean Corpuscular Volume 89 fL (80-100); Monocytes Percent Auto 5.5 % (0.0-11.0); Neutrophils Absolute Auto 4.24 K/uL (1.7-7.0); Neutrophils Percent Auto 55.8 % (42.0-72.0); Platelet Count* 261 K/uL (140-440); RDW Coefficient of Variation % 13.6 % (11.5-15.5); Red Blood Count 4.23 m/uL (4.00-5.20); White Blood Count* 7.61 K/uL (4.50-11.00)
[2024-04-19 21:17] LABS: Slide Review Reflex No
[2024-04-19 21:18] LABS: Chloride* 103 mmol/L (96-114); Potassium* 4.2 mmol/L (3.6-5.1); Sodium* 136 mmol/L (135-149)
[2024-04-19 21:20] LABS: Creatinine* 0.6 mg/dL (0.5-1.5); Est. Creatinine Clearance* 51.14; Estimated Glomerular Filt Rate 100 ml/min
[2024-04-19 21:21] LABS: Anion Gap 7 mEq/L (7-15); Blood Urea Nitrogen* 18 mg/dL (7-30); Calcium* 9.5 mg/dL (8.4-10.6); Carbon Dioxide* 26 mmol/L (20-32); Glucose* 145 mg/dL (60-115)
--- OUTSIDE RECORDS SUMMARY | 2024-04-19 21:29 | XMS_ITS | Clinical Summary ---
Author Organization [employer] Address [place], [place] [address] Care Team Providers Care Cloth Reeler Name Role Phone Lulu Cano MD Primary [...] flash glucose scanning reader (FreeStyle Chente 2 [place]) miscIndications:Unco ntrolled type 2 diabetes mellitus, with [...] 200 Each 3 04/23/20 22 Active Insulin [place], Disposable, (bd insulin pen needle uf mini) [...] be used to read blood sugars per stenotype machine operator's directions. 6 Each 3 12/15/19 24 Active [...] 14 04/17/2014 Pain medication agreement 11/26/2011 Overview: [place] adjusted per [facility] Signed Electronically: Angelo Perdue M.D. . . . 9:13 AM 03/25/2014 Type II or unspecified type diabetes mellitus without mention of complication, not stated as uncontrolled 04/28/2006 07/14/2017 Encounters Date Type Department Care Team Description 04/12/2024 Telephone [facility] [address] [facility] [address] Lulu Cano MD Prior Authorization (semaglutide (Ozempic) 2 mg/dose (8 mg/3 mL) subcutaneous pen Approved 04/12/2024 - 04/12/2025 [id number]) 04/11/2024 Refill [facility] [address] [facility] [address] Lulu Cano MD Refill Request (Gabapentin) 04/05/2024 10:50 AM CDT Office Visit [facility] [address] Lulu Cano MD Physical (Pap/) 04/05/2024 Travel 03/14/2024 Orders Only [facility] Scanner 1 scan: (1-Ord) INCOMING RECORDS-DIABETIC EYE, [facility], 03/14/2024 02/14/2024 Refill [facility] [address] [facility] [address] Lulu Cano MD Refill Request (Cyclobenzaprine) from Last 3 Months Immunizations Name Administration Dates Next Due COVID-19 Vaccine Spikevax (M oderna 50mcg/0.5mL) 12YO+ [id number] Formula PF 06/30/2023 COVID-19 vaccine (Moderna 100mcg/0.5mL) [...] DT Respiratory Rate 18 10/02/2021 8:48 AM DIALYSIS RN Oxygen Saturation 100% 04/05/2024 11:01 AM CDT Inhaled Oxygen Concentration - - Weight 80.3 kg (177 lb) 04/05/2024 11:01 AM CDT Height 166 cm (5' 5.35) 04/05/2024 11:01 AM CDT Body Mass Index 29.14 04/05/2024 11:01 AM CDT Plan of Treatment Upcoming Encounters Date Type Department Care Team (Late st Contact Info) Description 07/09/2024 10:25 AM CDT Office Visit [facility] [address] [place] [address] Lulu Cano MD [address] [place] [address] Health Maintenance Due Date Last Done Comments Fecal testing sDNA-FIT ([place] guard) for age 45-75 2005 Low Dose [...] with long-term current use of insulin (HC) MEMBERSHIP COUNSELOR THIN PREP PAP SCREEN IMAGED Routine 04/05/2024 11:48 AM CDT Screening for malignant neoplasm of cervix HPV THIN PREP Routine 04/05/2024 11:48 AM CDT Screening for malignant neoplasm of cervix SCAN-EYE EXAM 03/14/2024 12:00 AM CDT LIPID PANEL W REFLEX MEASURED LDL Routine 09/30/2023 9:26 AM DIALYSIS RN Type 2 diabetes mellitus with diabetic cataract, [...] 10.7(H) <=6.4 % 04/05/2024 12:28 PM CDT [facility] Blood BLOOD SPECIMEN / Unknown Venipuncture / Unknown 04/05/2024 12:17 PM CDT 04/05/2024 12:19 PM CDT Narrative [facility] - 04/05/2024 12:28 PM CDT ? (<=6.9%) [...] Lulu Cano MD CHEMISTRY Performing Organization Address City/State/[facility] [place] Phone Number [facility] [address] [place] [address], * MEMBERSHIP COUNSELOR THIN PREP PAP SCREEN IMAGED (04/05/2024 11:48 AM CDT) Case Report Gynecologic Cytology Report ? Case: [id number] ? Authorizing Provider: ??Lulu Cano MD ? Collected: ? 04/05/2024 1148 ? Ordering Location: ? [facility] ?? Received: ?04/05/2024 1337 ? Clinic ? First Screen: ?Ernestina Alvarado ? Rescreen: ?Tiffanie Alanis ? Specimen: ?MEMBERSHIP COUNSELOR ThinPrep Vial Screening, Cervical ? 04/16/2024 8:13 AM CDT [facility]AL LABORATORY INTERPRETATION/ RESULT NEGATIVE FOR INTRAEPITHELIAL LESION OR MALIGNANCY (NIL) (none) 04/16/2024 8:13 AM [facility] ENTRAL LABORAT[facility] NISM(S) Shift in brendan suggestive of bacterial vaginosis 04/16/2024 8:13 AM CDT [facility] ENTRAL LABOR[facility]ORY SPECIMEN ADEQUACY Satisfactory for evaluation No endocervical component seen 04/16/2024 8:13 AM CDT [facility] HPV REQUEST HPV and PAP 04/16/2024 8:13 AM CDT [facility] Date of LMP n/a 04/16/2024 8:13 AM CDT [facility] Last Pap Date 12/01/20 04/16/2024 8:13 AM CDT [facility] Last Pap Result ASCUS 8:13 AM CDT [facility] Abnormal Pap or Ute Bx in last 5 years Yes 04/16/2024 8:13 AM CDT [facility] Menstrual Status Postmenopausal 04/16/2024 8:13 AM CDT [facility] Ute Bx Done Today No 04/16/2024 8:13 AM CDT [facility] Additional Information ASCUS with negative HPV in [address]2004/16/2024 8:13 AM CDT [facility] Comment: Cytology is screened at [facility] - [address], [place] [address] and [facility] - [address] [place] [address] and [facility] - [address] [place] [address] Interpreted at [facility] - [address], [place] [address] Automated Review Successful 04/16/2024 8:13 AM T [facility] Comment:Specimen processed s uccessfully by automated climate change analyst device, ThinPrep Imaging System, [employer] ANCILLARY TESTING MEMBERSHIP COUNSELOR HPV Ordered, Please see separate report 04/16/2024 8:13 AM T [facility] Note The pap test is a [...] and malignant lesions. 04/16/2024 8:13 AM CDT [facility]- ENTRAL LABORATORY Other (Cervical) Non-Blood / Unknown 04/05/2024 11:48 AM CDT 04/05/2024 1:37 PM CDT Lulu Cano MD PATHOLOGY/CYTOLOGY Performing Organization Address [facility] Co de Phone Number [facility] [address] [place] [address], * HPV HIGH RISK (04/05/2024 11:48 AM CDT) TYPE 16 Negative Negative 04/12/2024 6:00 AM CDT [facility] TYPE 18 Negative Negative 04/12/2024 6:00 AM CDT [facility] OTHER HIGH RISK TYPES Negative Negative 04/12/2024 6:00 AM CDT [facility] Other (Cervical) Non-Blood / Unknown 04/05/2024 11:48 AM CDT 04/09/2024 5:13 PM CDT Narrative [facility] - 04/12/2024 6:00 AM CDT HPV types 16, 18, 31, 33, 35, 39, 45, 51, 52, 56, 58, 59, 66 and 68 DNA were undetectable or below the pre-set threshold. Methodology: Pascual Natividad 4800 HPV Test Lulu Cano MD MICROBIOLOGY Performing Organization Address [facility] Co de Phone Number [facility] [address] [place] [address], * SCAN-EYE EXAM (03/14/2024 12:00 AM CDT) Scanner OTHER * (ABNORMAL) LIPID PANEL W REFLEX MEASURED LDL (09/30/2023 9:26 AM DIALYSIS RN) CHOLESTEROL,TOTAL 152 100 - 199 mg/dL 09/30/2023 5:57 PM DIALYSIS RN [facility] Comment: Cholesterol, Total Reference Ranges Desirable <200 mg/dL Borderline 200-239 mg/dL High >=240 mg/dL TRIGLYCERIDES 178(H) <150 mg/dL 09/30/2023 5:57 PM DIALYSIS RN [facility] HDL CHOLESTEROL 60 >40 mg/dL 5:57 PM DIALYSIS RN [facility] NON-HDL CHOLESTEROL 92 <145 mg/dl 09/30/2023 5:57 PM DIALYSIS RN [facility] CHOL/HDL RATIO 2.53 <4.50 09/30/2023 5:57 PM DIALYSIS RN [facility] LDL CHOLESTEROL 56 <=130 mg/dL 09/30/2023 5:57 PM DIALYSIS RN [facility] VLDL CHOLESTEROL 36(H) <=30 mg/dL 09/30/2023 5:57 PM [facility] PROVIDER ORDERED STATUS RANDOM 09/30/2023 5:[address] [facility] Blood BLOOD SPECIMEN / Unknown Venipuncture / Unknown 09/30/2023 9:26 AM DIALYSIS RN 09/30/2023 9:28 AM DIALYSIS RN Brenda Rush DO CHEMISTRY [facility] [address] [place] [address], * XR MAMMO BILAT SCREENING (12/19/2020 9:48 [...] 4:22 PM CDT XR MAMMO BILAT SCREENING [[id number]] CLINICAL HISTORY: ??This is an asymptomatic 60 y.o. patient. INDICATION FOR EXAM: Mammogram Screening. TECHNIQUE: CC & MLO views were obtained. ??This digital study was evaluated with the assistance of Computer-Aided Detection. COMPARISON FILM: Yes 03/27/15 [facility] ?? FINDINGS: ??The breasts are heterogeneously dense, which may obscure small masses. There are no dominant masses, suspicious micro calcifications or areas of architectural distortion. nIés Mccarty MD MAMMO * ANTI HCV (12/01/2020 9:11 AM CDT) HEPATITIS C ANTIBODY Non-React tadeo Non-React tadeo 12/01/2020 3:39 PM CDT [facility] Comment:Antibodies to HCV no t detected; does not exclude the possibility of exposure to HCV. Blood BLOOD SPECIMEN / Unknown Venipuncture / Unknown 12/01/2020 9:11 AM CDT 12/01/2020 9:11 AM CDT Inés Mccarty MD [facility] [address] [place] [address], [place] * ANTI HIV 1/2 (07/14/2017 4:14 PM CDT) Pathologist [facility] HIV-1/HIV-2 ANTIBODY Non-Reacti ve Non-Reacti ve 07/14/2017 8:23 PM CDT [facility] Blood BLOOD SPECIMEN / Unknown Venipuncture / Unknown 07/14/2017 4:14 PM CDT 07/14/2017 4:14 PM CDT Narrative [facility] - 07/14/2017 8:23 PM CDT HIV-1 p24 and HIV-1/HIV-2 Ab not detected Jose Carlos Philip MD [facility] [address] [place] [phone], [place] from Last 3 Months or Most Recently Relevant to Health Maintenance Advance Directives Documents on File Type Date Recorded Patient Bull Float Finisher Expl anation Healthcare Directive 09/25/2015 3:50 PM [facility], 05/06/2015 Care Teams Cloth Reeler Relationship Specialty Start Date End Date Lulu Cano MD [address] [place] [address] PCP - General Family Practice 04/11/23
[2024-04-19 21:38] LABS: Troponin I* < 0.01 ng/mL (0.01-0.04)
[2024-04-19 21:55] LABS: TSH With Reflex to FT4* 0.973 uIU/mL (0.270-4.200)
== END 2024-04-19 22:25 | disposition home or self-care (01) ==
PROVIDERS: Emergency Provider Family Medicine; PCP Family Medicine
DX: R00.2 Palpitations (principal)
CPT/HCPCS: 36415; 80048; 84443; 84484; 85025; 93005; 99282; 99283

== ENCOUNTER 2024-08-23 07:58 | Outpatient (CLI) | payer MEDICAID, SELFPAY ==
--- OUTSIDE RECORDS SUMMARY | 2024-08-23 08:03 | XMS_ITS | Clinical Summary ---
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 daily 08/25/20 23 Active continuous glucose monitor SENSOR KIT (FreeStyle Chente 2 Sensor)Indications:T ype 2 diabetes mellitus with other specified complication, with long-term current use of insulin (HC) To be used to read blood sugars per counter pocket trimmer's directions. 6 Each 3 12/15/19 24 Active cyclobenzaprine (FLEXERIL) 10 mg tabletIndications:DD D (degenerative disc disease), lumbar TAKE 1 TABLET(10 MG) BY MOUTH AT BEDTIME NEEDED FOR MUSCLE SPASM 90 Tablet 1 02/16/20 24 Active fluticasone (50 mcg per actuation) nasal solution (FLONASE)Indications :Seasonal allergies Inhale 2 Sprays to both nostrils once daily. 16 g 5 04/05/20 24 Active olopatadine (PATANOL) 0.1 % ophthalmic solutionIndications: Seasonal allergies Place 1 Drop into both eyes two times daily. 5 mL 04/05/20 24 Active loratadine (CLARITIN) 10 mg tabletIndications:Se asonal allergies Take 1 Tablet (10 mg) by mouth once daily. 100 Tablet 3 04/05/20 24 Active omeprazole 20 mg tabletIndications:He artburn Take 1 Tablet (20 mg) by mouth once daily before a meal. 90 Tablet 2 05/01/20 24 Active insulin glargine, U-100, (Lantus Solostar U-100 Insulin) 100 unit/mL (3 mL) penIndications:Type 2 diabetes mellitus with diabetic microalbuminuria, with long-term current use of insulin (HC) INJECT 50 UNITS SUBCUTANEOUS BEFORE BEDTIME. INCREASE BY 2 UNITS EVERY 2-3 DAYS UNTIL FASTING BLOOD GLUCOSE 130-150. MAX DOSE OF 65 UNITS 60 mL 05/06/20 24 Active simvastatin (ZOCOR) 20 mg tabletIndications:Hy perlipidemia, unspecified hyperlipidemia type TAKE 1 TABLET(20 MG) BY MOUTH AT BEDTIME 90 Tablet 2 06/12/20 24 Active gabapentin (NEURONTIN) 300 mg capsuleIndications:D iabetic polyneuropathy associated with type 2 diabetes mellitus (HC) Take 3 Capsules (900 mg) by mouth three times daily. 810 Capsule 3 07/12/20 24 Active insulin aspart, U-100, (NovoLOG Flexpen U-100 Insulin) 100 unit/mL (3 mL) penIndications:Type 2 diabetes mellitus with diabetic microalbuminuria, with long-term current use of insulin (HC) Inject 5 units subcutaneous before dinner. 6 mL 3 07/12/20 24 Active empagliflozin (Jardiance) 25 mg tabletIndications:Ty pe 2 diabetes mellitus with other specified complication, with long-term current use of insulin (HC) TAKE 1 TABLET(25 MG) BY MOUTH DAILY IN THE MORNING 90 Tablet 07/27/20 24 Active LORazepam (Ativan) 0.5 mg tabIndications:Chron ic right shoulder pain Take 1 Tablet (0.5 mg) by mouth one time for 1 dose. 1 Tablet 08/03/20 24 Active empagliflozin (JARDIANCE) 25 mg tabletIndications:Ty pe 2 diabetes mellitus with other specified complication, with long-term current use of insulin (HC) Take 1 Tablet (25 mg) by mouth once daily. Take in the morning. 60 Tablet 05/28/20 24 024 Discontinued Active Problems Problem Noted [...] DDD (degenerative disc disease), lumbar 06/27/20 09 Overview (09/23/2012): MRI 2006 L4-5 left disc herniation, L5-S1 disffuse disc bulding. ~ May 30, 2012:L5-S1 transforaminal Work comp epidural steroid injection by Dr. Perdue. Obesity, unspecified 11/29/2007 Tobacco use disorder 08/18/2007 Other and unspecified hyperlipidemia 08/18/2007 Dysthymic disorder 06/19/2007 Resolved Problems Problem Noted Date Diagnosed Date Resolved Date ASCUS of cervix with negative high risk HPV 12/01/2020 04/16/2024 Overview (04/16/2024): 11/2020 ASCUS/HPV Negative. 03/2024 NIL/HPV negative Plan: routine screening Anticoagulation monitoring, INR range 2.5-3.5 04/17/20 14 04/17/2014 Pain medication agreement 11/26/2011 Overview (03/25/2014): [place] adjusted per [facility] Signed Electronically: Angelo Perdue M.D. . . . 9:13 AM 03/25/2014 Type II or unspecified type diabetes mellitus without mention of complication, not stated as uncontrolled 04/28/2006 07/14/2017 Encounters Date Type Department Care Team Description 08/03/2024 9:45 AM CORRECTIONAL THERAPY TEACHER Office Visit [facility] [address] [place] [address] Power Maxwell MD Consult (right bicep) 08/03/2024 9:30 AM CORRECTIONAL THERAPY TEACHER Ancillary Procedure [facility] [address] [place] [address] 08/03/2024 Travel 08/01/2024 Telephone [facility] [place] [address] [facility] [address] [place] [address] Power Maxwell MD Appointment (Needs x-ray) 07/24/2024 Refill [facility] [address] [place] [address] Lulu Cano MD Refill Request (Jardiance) 07/12/2024 2:45 PM CDT Office Visit [facility] [address] [place] [address] Lulu Cano MD Diabetes (3 Month Visit); Neurologic Problem (starting to bother, wanting to get something to help ) 07/12/2024 Travel 06/10/2024 Refill [facility] [address] [place] [address] Lulu Cano MD Refill Request (Simvastatin) 06/05/2024 Refill [facility] [address] [place] [address] Lulu Cano MD Refill Request (LANTUS) 05/25/2024 Refill [facility] [address] [place] [address] Lulu Cano MD Refill Request (Jardiance) from Last 3 Months Immunizations Name Administration Dates Next Due COVID-19 VACCINE SPIKEVAX (M ODERNA 50MCG/0.5ML) 12YO+ PFS 07/12/2024,06/30/2023 COVID-19 vaccine (Moderna 100mcg/0.5mL) PF, MDV 11/14/2020,10/17/2020 COVID-19 vaccine (Pfizer-Bio NTech 30mcg/0.3mL) 12YO+ BIVALENT PF, MDV 07/28/2022 INFLUENZA, IIV3 PF (AGE >= 6 MO) 07/12/2024 Influenza, IIV3 (Age 6-35 mos) 06/07/2011 Influenza, [...] 0 04/05/2024 Social Connections Answer Date Recorded Do you often feel lonely or isolated from those around you? 0 07/12/2024 Financial Resource Strain Answer Date R ecorded Difficulty of Paying Living Expenses 3 07/12/2024 Difficulty of Paying Living Expenses Not on file 07/12/2024 Food Insecurity Answer Date Recorded Do you worry your food will run out before you are able to buy more? 1 07/12/2024 Transportation Needs Answer Date Record ed Does lack of transportation keep you from medica l appointments? 1 07/12/2024 Does lack of transportation keep you from work, meetings or getting things that you need? 1 07/12/2024 Housing Stability Answer Date Recorded What is your housing situation today? 1 07/12/2024 Sex and Gender Information Value Date Recorded Sex Assigned at Not on file Gender Identity Not on file Sexual Orientation Not on file Obstetrics History Para Term AB IAB SAB Ectopic Multiple Livin g Live Births 0 0 0 0 0 0 0 0 0 Last Filed Vital Signs Vital Sign Reading Time Taken Comments Blood Pressure 146/77 07/12/2024 3:15 PM CDT Pulse 89 07/12/2024 3:15 PM CDT Temperature 36.9 C (98.5 F) 05/30/2023 10:28 AM CDT Respiratory Rate 18 10/02/2021 8:48 AM CORRECTIONAL THERAPY TEACHER Oxygen Saturation 99% 07/12/2024 3:15 PM CDT Inhaled Oxygen Concentration - - Weight 84.3 kg (185 lb 12.8 oz) 07/12/2024 3:15 PM CDT Height 166 cm (5' 5.35) 04/05/2024 11: 01 AM CDT Body Mass Index 30.58 04/05/2024 11:01 AM CDT Plan of Treatment Upcoming Encounters Date Type Department Care Team (Late st Contact Info) Description 08/23/2024 12:30 PM CORRECTIONAL THERAPY TEACHER Ancillary Procedure [facility] [address] [facility] [place] [address] 08/28/2024 10:45 AM CORRECTIONAL THERAPY TEACHER Office Visit [facility] [place] [address] [facility] [address] [place] [phone] Power Maxwell MD [address] [facility] [address] [place] [address] 10/12/2024 10:20 AM CORRECTIONAL THERAPY TEACHER Office Visit [facility] [address] [place] [address] Lulu Cano MD [address] [place] [address] Health Maintenance Due Date Last Done Comments Fecal testing sDNA-FIT ([place] guard) for age 45-[address] (for lung CA) ag e 50-80 2010 Zoster (shingles) series for age 50+ (2 of 3) 05/10/2012 03/15/2012 Mammogram for age 45-75 12/19/2021 12/20/19, 03/27/2015, 07/20/2011, Additional history exists BMI (ht and wt [...] series for age 6-64 Completed 07/28/20, 12/26/2013 Tdap Completed 04/05/2024, 12/26/2013 COVID-19 vaccine series Completed 07/12/20, 06/30/2023, 07/28/2022, Additional history exists Influenza for age 50-64 Completed 07/12/20, 06/30/2023, 07/28/2022, Additional history exists Procedures Procedure Name Priority Date/Time Associated Diagnosis Comments XR SHOULDER 4 VIEWS RIGHT Routine 08/03/2024 9:35 AM CORRECTIONAL THERAPY TEACHER Chronic right shoulder pain HEMOGLOBIN A1C MONITORING (POCT) Routine 07/12/2024 2:57 PM CDT Type 2 diabetes mellitus with diabetic microalbuminuria, with long-term current use of insulin (HC) HPV HIGH RISK Routine 04/05/2024 11:48 AM CDT Screening for malignant neoplasm of cervix LIPID PANEL W REFLEX MEASURED LDL Routine 09/30/2023 9:26 AM CORRECTIONAL THERAPY TEACHER Type 2 diabetes mellitus with diabetic cataract, [...] Recently Relevant to Health Maintenance Results * XR SHOULDER 4 VIEWS RIGHT (08/03/2024 9:35 AM CORRECTIONAL THERAPY TEACHER) Anatomical Region Laterality Modality SHOULDERS, SHOULDER R Computed R adiography 08/03/2024 1:25 PM CORRECTIONAL THERAPY TEACHER Narrative 08/03/2024 1:25 PM CORRECTIONAL THERAPY TEACHER For Patients: As a result of the Century Cures Act, medical imaging exams and procedure reports are released immediately into your electronic medical record. You may view this report before your referring provider. If you have questions, please contact your health care provider. INDICATION: Chronic right shoulder pain TECHNIQUE: Shoulder radiograph 4 views right COMPARISON: None FINDINGS: Bone: There are nonaggressive lucencies with peripheral sclerosis seen in the humeral head which can be associated with rotator cuff pathology. Moderate diffuse osteopenia is present. Joint: Mild osteoarthritis of the glenohumeral joint is noted. The acromioclavicular joint is unremarkable. Soft tissue: Unremarkable. No radiopaque foreign bodies are seen. IMPRESSIONS: 1. No acute osseous injuries or abnormalities are noted. 2. There are nonaggressive lucencies with peripheral sclerosis seen in the humeral head which can be associated with rotator cuff pathology. Assessment with MRI may be helpful. Dictated by Lorne Wang MD @ 08/03/2024 1:25:25 PM Dictated by: Lorne Wang MD @ 08/03/2024 13:25:27 (Electronically Signed) Procedure Note Lorne Wang MD - 08/03/2024 For Patients: As a result of the Cures Act, medical imagingexams and procedure reports are released immediately into your electronicmedical record. You may view this report before your referring provider.If you have questions, please contact your health care provider. INDICATION: Chronic right shoulder pain TECHNIQUE: Shoulder radiograph 4 views right COMPARISON: None FINDINGS: Bone: There are nonaggressive lucencies with peripheral sclerosis seen inthe humeral head which can be associated with rotator cuff pathology.Moderate diffuse osteopenia is present. Joint: Mild osteoarthritis of the glenohumeral joint is noted. Theacromioclavicular joint is unremarkable. Soft tissue: Unremarkable. No radiopaque foreign bodies are seen. IMPRESSIONS: 1. No acute osseous injuries or abnormalities are noted. 2. There are nonaggressive lucencies with peripheral sclerosis seen in thehumeral head which can be associated with rotator cuff pathology.Assessment with MRI may be helpful. Dictated by Lorne Wang MD @ 08/03/2024 1:25:25 PM Dictated by: Lorne Wang MD @ 08/03/2024 13:25:27 (Electronically Signed) Power Maxwell MD GENERAL IMAGING * (ABNORMAL) POCT Hemoglobin A1C Monitoring (07/12/2024 2:57 PM CDT) POC HEMOGLOBIN A1C 8.6(H) <6.0 % OF TOTAL HGB [facility] Comment: Any point of care results exhibiting inconsistency with the patient's clinical status should be repeated using a different testing method. Blood BLOOD SPECIMEN / Unknown 07/12/2024 2:57 PM CDT 07/12/2024 2:58 PM CDT Lulu Cano MD CHEMISTRY [facility] [address] [place] [address], [facility] [address] [place] [address] * HPV HIGH RISK (04/05/2024 11:48 AM CDT) TYPE 16 Negative Negative 04/12/2024 6:00 AM CDT [facility] TYPE 18 Negative Negative 04/12/2024 6:00 AM CDT [facility] OTHER HIGH RISK TYPES Negative Negative 04/12/2024 6:00 AM CDT [facility] Other (Cervical) Non-Blood / Unknown 04/05/2024 11:48 AM CDT 04/09/2024 5:13 PM CDT Narrative [facility] - 04/12/2024 6:00 AM CDT HPV types 16, 18, 31, 33, 35, 39, 45, 51, 52, 56, 58, 59, 66 and 68 DNA were undetectable or below the pre-set threshold. Methodology: P[address] 4800 HPV Test Lulu Cano MD MICROBIOLOGY [facility] [address] [place] [address], * (ABNORMAL) LIPID PANEL W REFLEX MEASURED LDL (09/30/2023 9:26 AM CORRECTIONAL THERAPY TEACHER) CHOLESTEROL,TOTAL 152 100 - 199 mg/dL 09/30/2023 5:57 PM CORRECTIONAL THERAPY TEACHER [facility] Comment: Cholesterol, Total Reference Ranges Desirable <200 mg/dL Borderline 200-239 mg/dL High >=240 mg/dL TRIGLYCERIDES 178(H) <150 mg/dL 09/30/2023 5:57 PM CORRECTIONAL THERAPY TEACHER [facility] HDL CHOLESTEROL 60 >40 mg/dL 5:57 PM [facility] NON-HDL CHOLESTEROL 92 <145 mg/dl 09/30/2023 5:57 PM [facility] CHOL/HDL RATIO 2.53 <4.50 09/30/2023 5:57 PM CORRECTIONAL THERAPY TEACHER [facility] LDL CHOLESTEROL 56 <=130 mg/dL 09/30/2023 5:57 PM [facility] VLDL CHOLESTEROL 36(H) <=30 mg/dL 09/30/2023 5:57 PM [facility] PROVIDER ORDERED STATUS RANDOM 09/30/2023 5:57 PM [facility] Blood BLOOD SPECIMEN / Unknown Venipuncture / Unknown 09/30/2023 9:26 AM CORRECTIONAL THERAPY TEACHER 09/30/2023 9:28 AM CORRECTIONAL THERAPY TEACHER Brenda Rush DO CHEMISTRY [facility] [address] [address], * XR MAMMO BILAT SCREENING (12/19/2020 9:48 AM CDT) Anatomical Region Laterality Modality BREASTS, Breast Left, Breast Right Bilateral Mammography Impressions 12/19/2020 4:22 PM CDT There is no radiographic evidence for malignancy. Recommend annual mammograms. MAMMOGRAM ASSESSMENT: ACR 1 Negative PATIENTS: You will also receive a letter with your examination results in an easy to read format. If you have questions about your results, please contact your referring provider. Narrative 12/19/2020 4:22 PM CDT XR MAMMO BILAT SCREENING [[id number]] CLINICAL HISTORY: This is an asymptomatic 60 y.o. patient. INDICATION FOR EXAM: Mammogram Screening. TECHNIQUE: CC & MLO views were obtained. This digital study was evaluated with the assistance of Computer-Aided Detection. COMPARISON FILM: Yes 03/27/15 [employer] FINDINGS: The breasts are heterogeneously dense, which may obscure small masses. There are no dominant masses, suspicious micro calcifications or areas of architectural distortion. Inés Mccarty MD MAMMO * ANTI HCV (12/01/2020 9:11 AM CDT) HEPATITIS C ANTIBODY Non-React tadeo Non-React tadeo 12/01/2020 3:39 PM CDT [facility] Comment:Antibodies to HCV no t detected; does not exclude the possibility of exposure to HCV. Blood BLOOD SPECIMEN / Unknown Venipuncture / Unknown 12/01/2020 9:11 AM CDT 12/01/2020 9:11 AM CDT Inés Mccarty MD SEND OUTS [facility] [address] [place] [address], [place] * ANTI HIV 1/2 (07/14/2017 4:14 PM CDT) Pathologist [facility] HIV-1/HIV-2 ANTIBODY Non-Reacti ve Non-Reacti ve 07/14/2017 8:23 PM CDT [facility] Blood BLOOD SPECIMEN / Unknown Venipuncture / Unknown 07/14/2017 4:14 PM CDT 07/14/2017 4:14 PM CDT [facility]arrative [facility] - 07/14/2017 8:23 PM CDT HIV-1 p24 and HIV-1/HIV-2 Ab not detected Jose Carlos Philip MD [facility]S [facility] [address] [place] [address], [place] from Last 3 Months or Most Recently Relevant to Health Maintenance Advance Directives Documents on File Type Date Recorded Patient Curtain Cutter Expl anation Healthcare Directive 09/25/2015 3:50 PM [facility], 05/06/2015 Care Teams Tv Host Relationship Specialty Start Date End Date Lulu Cano MD [address] [place] [address] PCP - General Family Practice 04/11/23
== END 2024-08-23 07:59 | disposition home or self-care (01) ==
LOC: WOUND 07:58
PROVIDERS: PCP Family Medicine; Visit Provider Nurse Practitioner Family
DX: E11.43 Type 2 diabetes mellitus with diabetic autonomic (poly)neuropathy (principal); L84 Corns and callosities; Z79.4 Long term (current) use of insulin; Z79.84 Long term (current) use of oral hypoglycemic drugs
CPT/HCPCS: G0463

== ENCOUNTER 2025-02-27 11:00 | Outpatient (RCR) | payer MEDICAID, SELFPAY | END 2025-04-09 15:35 | disposition home or self-care (01) | PROVIDERS: PCP Family Medicine; Visit Provider Orthopaedic Surgery | DX: Z48.89 Encounter for other specified surgical aftercare (principal); M75.121 Complete rotator cuff tear or rupture of right shoulder, not specified as traumatic; M75.41 Impingement syndrome of right shoulder; S46.211D Strain of muscle, fascia and tendon of other parts of biceps, right arm, subsequent encounter; Z51.89 Encounter for other specified aftercare | CPT/HCPCS: 97110; 97140; 97162 ==

== ENCOUNTER 2025-04-11 06:35 | Day surgery (SDC) | payer MEDICARE, MEDICAID, SELFPAY ==
[2025-04-11] VITALS (22 sets, daily range): BP systolic 99–141; BP diastolic 54–87; PULSE 68–87; RESP 12–18; TEMP 35.5–36.8; O2SAT 90–100; BMI 31.9
[2025-04-11] MEDS: SODIUM CHLORIDE 0.9 % (FLUSH) 10 ML SYRINGE IVF (07:20)
[2025-04-11] MEDS: LACTATED RINGERS 1000 ML 1,000 ML 100 ML IV ×2 (07:20→09:46)
[2025-04-11] MEDS: CELECOXIB 200 MG CAPSULE PO (07:25)
[2025-04-11] MEDS: ACETAMINOPHEN 500 MG TABLET 1000 MG PO (07:25)
--- NOTE | 2025-04-11 07:30 | SUR.PREOP ---
TIME?OUT:?0730 PT/RN/MDA?VERIFICATION?OF?SURGICAL?SITE,?PROCEDURE,?AND?CONSENT OBTAINED?PRIOR?TO?INVASIVE?PROCEDURE.
[2025-04-11] MEDS: MIDAZOLAM HCL 1 MG/ML inj IVP (07:31)
--- NOTE | 2025-04-11 07:45 | CRLHL7_ITS ---
For Patients: As a result of the Cures Act, medical imaging exams and procedure reports are released immediately into your electronic medical record. You may view this report before your referring provider. If you have questions, please contact your health care provider. INDICATION: Left total hip arthroplasty COMPARISON: None. TECHNIQUE: Fluoroscopic images of the pelvis performed for the purposes of intraoperative planning. Total fluoroscopy time was 58.4 seconds. FINDINGS: Fluoroscopic images of the pelvis performed for the purposes of intraoperative planning. The two provided images demonstrate the presence of bilateral hip arthroplasty devices. IMPRESSION: Fluoroscopic images performed for intraoperative planning. Dictated by Christo Mireles MD @ 04/15/2025 8:30:10 PM (Electronically Signed)
[2025-04-11] MEDS: TRANEXAMIC ACID 100 MG/ML INJ 1000 MG IV (08:43)
--- NOTE | 2025-04-11 08:50 | P.ANES_ITS ---
Anesthesia Charges Start Date/Time Anesthesia Start Date: 04/11/25 Anesthesia Start Time: 08:23 Stop Date/Time Anesthesia Stop Date: 04/11/25 Anesthesia Stop Time: 11:02 Coding CPT Codes CPT Codes: ANESTH HIP ARTHROPLASTY - 22227 ([id number]) P3 - PATIENT W/SEVERE SYS DISEASE, QK - TECHNICAL DIRECTOR 2-4 CNCRNT ANES PROC, QX - CONSULTING GROUP ANALYST SVC W/ MD MED DIRECTION
--- NOTE | 2025-04-11 08:50 | W.PM.NB ---
Nerve Block Nerve Block Time Seen by Provider: 07:30 Date Seen: 04/11/25 Type of block requested by surgeon for post-operative analgesia: RASHAD/LFCN Side: left Time out performed: Yes Verification of patient name: Yes Verification of date of : Yes Site marking: site marked Name of person performing procedure: Torres Continuous monitoring Was continuous monitoring of O2 sat, B/P, rn cardiac rehab, recorded every 15 minutes?: Yes Procedure Checklist: sterile prep, needles and gloves Ultrasound guided. Images saved: Yes Medications given in 5ml increments after negative aspiration: Ropivicaine %: 0.5 mL: 30 Needle gauge: 20 Precedex (mcg): 25 Patient tolerated procedure well: Yes Additional comments: Needle noted below psoas tendon needle noted adjacent to LFCN Block Charges Block Charge (with Pro Fee): Other Periph Nerve Block Use of Ultrasound Machine for Block: Yes- US Guidance/pain block
--- NOTE | 2025-04-11 08:50 | W.ANESCHARGE ---
Anesthesia Charges Start Date/Time Anesthesia Start Date: 04/11/25 Anesthesia Start Time: 08:23 Stop Date/Time Anesthesia Stop Date: 04/11/25 Anesthesia Stop Time: 11:02 Coding CPT Codes CPT Codes: ANESTH HIP ARTHROPLASTY - 97568 ([id number]) P3 - PATIENT W/SEVERE SYS DISEASE, QK - ELECTRONICS REPAIR TECHNICIAN 2-4 CNCRNT ANES PROC, QX - OPERATING ROOM SCHEDULER SVC W/ MD MED DIRECTION
--- NOTE | 2025-04-11 10:34 | CRLHL7_ITS ---
For Patients: As a result of the Cures Act, medical imaging exams and procedure reports are released immediately into your electronic medical record. You may view this report before your referring provider. If you have questions, please contact your health care provider. HISTORY: Left total hip arthroplasty. TECHNIQUE: AP pelvis and lateral view left hip. COMPARISON: 04/11/2025. FINDINGS: Intact left total hip arthroplasty. The components appear appropriately seated. There is no fracture or dislocation. Soft tissue gas is expected postoperatively. Remote right total hip arthroplasty. IMPRESSION: 1. Intact left total hip arthroplasty. Dictated by Cleve Bell MD @ 04/16/2025 5:23:28 AM (Electronically Signed)
--- NOTE | 2025-04-11 10:36 | PM.ORPRC ---
Procedure Note Date of procedure: 04/11/25 Procedure: PREOPERATIVE DIAGNOSIS: Left hip osteoarthritis POSTOPERATIVE DIAGNOSIS: Left hip osteoarthritis NAME OF OPERATION: Left total hip arthroplasty SURGEON: Farzad Basurto MD EXCAVATING CONTRACTOR: Kristine Chappell PA-C, DAYAN Mariano IMPLANTS: 1. [employer] [place] # 50 sector ingrowth cup 2. 32 x 50 +4 neutral polyethylene 3. Actis # 6 standard collared ingrowth stem 4. 32 + 1 ceramic femoral head ANESTHESIA: Spinal ESTIMATED BLOOD LOSS: 200 cc COMPLICATIONS: None SPECIMENS: None DRAINS: None PREOPERATIVE ANTIBIOTICS: Ancef 2 grams INDICATIONS: The patient is a 65-year-old with a longstanding history of severe, unrelenting left hip pain secondary to end-stage left hip osteoarthritis. Despite appropriate nonoperative management, including activity modification, use of an assist device, anti-inflammatories, [id number] pain medication, physical therapy and injections, they continue to have pain and disability. Operative intervention was offered. The risks, benefits and expected outcomes were discussed in detail. These included but were not limited to: Infection, bleeding, injury to blood vessel or nerve, venous thromboembolism. All questions were answered to their satisfaction. Use of an operational assistant was necessary throughout the case for patient positioning and safety, soft tissue retraction and closure. PROCEDURE: The patient was placed supine on the [place] table. General anesthesia was administered. The operational assistant made sure the patient was properly positioned. The left hip was prepped and draped in the usual sterile fashion. The image intensifier was brought in for a perfect AP pelvis and a perfect double tear drop AP view of each hip which were used for intraoperative templating with our fluoroscopic guide. A bikini incision was made just distal to the hip flexion crease. The operational assistant retracted the soft tissues to protect them. Subcutaneous dissection was taken with electrocautery to the superficial fascia. The fascia was divided in line with the fibers of the TFL. Blunt dissection was carried medially to the tensor fascia jad and sartorius interval. Deep dissection was carried with electrocautery. The circumflex vessels were cauterized and divided. The capsule was exposed and then divided in a T-fashion, tagged with #1 FiberWire sutures. Retractors were placed in the joint, held by the operational assistant. The corkscrew was placed in the femoral head. The neck cut was made in the subcapital region. We made a second neck cut more distal. The napkin ring of bone was removed. The femoral head was removed intact. Acetabular retractors were placed, held by the operational assistant. The labrum was sharply debrided. The capsule was released. The 43 mm reamer was used to the true medial wall. We then enlarged in 2 mm increments using the image intensifier for our reamer placement. We impacted the cup which had excellent purchase. We placed the polyethylene. Attention was then turned to the proximal femur. The limb was placed in 140 degrees of external rotation, maximum extension and adduction. A significant amount of time was spent releasing the capsule to allow us to deliver the femur into the wound and complete the femoral side safely. Retractors were held by the operational assistant throughout the femoral preparation. The hand binder cutter and canal finder were used. Broaches were used to a stable size. The calcar reamer was used. Trial components were placed. The hip was reduced and was found to be stable with appropriate soft tissue tension. Length and offset had been nicely restored using the image intensifier and our fluoroscopic guide. Trial components were removed. The stem was impacted. We placed the femoral head. Again, the hip was reduced and was found to be stable with appropriate soft tissue tension. Length and offset had been nicely restored. The operational assistant did a three minute dilute Betadine solution soak. The operational assistant irrigated the wound with 3 liters of normal saline via pulse lavage. The operational assistant repaired the anterior capsule with a #1 Vicryl and our previously placed Ethibond sutures. The operational assistant closed the fascia over the tensor fascia jad with a #1 PDO Stratafix, subcutaneous tissues with 2-0 Vicryl, skin with a running 3-0 Stratafix and glue. A dry dressing was applied by the operational assistant. Sponge and needle counts were correct x 2. The patient tolerated the procedure well; there were no apparent complications. They were awakened and extubated in the operating room, sent to the Post-Anesthesia Care Unit in satisfactory condition. PLAN: 1. The patient will be mobilized with physical therapy, weight-bearing as tolerates 2. Xarelto x 5 days then aspirin x 30 days will be used for DVT prophylaxis 3. The patient will be discharged once medically appropriate
--- NOTE | 2025-04-11 11:00 | P.ANES_ITS ---
Anesthesia Charges Start Date/Time Anesthesia Start Date: 04/11/25 Anesthesia Start Time: 08:23 Stop Date/Time Anesthesia Stop Date: 04/11/25 Anesthesia Stop Time: 11:02 Coding CPT Codes CPT Codes: ANESTH HIP ARTHROPLASTY - 28295 ([id number]) P3 - PATIENT W/SEVERE SYS DISEASE, QK - FAMILY REUNIFICATION SPECIALIST 2-4 CNCRNT ANES PROC, QX - CARD DEALER SVC W/ MD MED DIRECTION
--- NOTE | 2025-04-11 11:00 | W.ANESCHARGE ---
Anesthesia Charges Start Date/Time Anesthesia Start Date: 04/11/25 Anesthesia Start Time: 08:23 Stop Date/Time Anesthesia Stop Date: 04/11/25 Anesthesia Stop Time: 11:02 Coding CPT Codes CPT Codes: ANESTH HIP ARTHROPLASTY - 41181 ([id number]) P3 - PATIENT W/SEVERE SYS DISEASE, QK - PARALEGAL SECRETARY 2-4 CNCRNT ANES PROC, QX - FURNITURE POLISHER SVC W/ MD MED DIRECTION
--- NOTE | 2025-04-11 11:40 | SUR.PHASEI ---
patient met discharge criteria per anesthesia
[2025-04-11] MEDS: ONDANSETRON 2 MG/ML inj 4 MG IVP (12:09)
[2025-04-11] MEDS: LACTATED RINGERS 1000 ML 1,000 ML 75 ML IV (14:14)
[2025-04-11] MEDS: HYDROCODONE-ACETAMIN 5-325 MG 1 TAB PO ×3 (14:22→22:35)
--- NOTE | 2025-04-11 14:39 | P.IMCN_ITS ---
Date of Consult Consult date: 04/11/25 Primary Care Provider: Lulu Cano MD Consult Narrative Narrative: Radha Mera is a 65 year old female With past medical history of tobacco use, diabetes type 2, hyperlipidemia and GERD who presents for an elective left hip replacement. Patient denies any heart problems, any history of bleeding or history of DVT/ PE. Denies kidney disease. Patient is an active smoker, she states that she smokes about 10 cigarettes a day. Review of Systems Status of ROS: Reports: 6 or more systems reviewed and unremarkable except as noted in History and below [facility] Medical History (Updated 04/11/25 @ 14:43 by Donna Pham MD) Tobacco use ?Z72.0 - Tobacco use (ICD-10) Non-pressure chronic ulcer of other part of right foot with fat layer exposed ?L97.512 - Non-pressure chronic ulcer of other part of right foot with fat layer exposed (ICD-10) Type 2 diabetes mellitus with foot ulcer ?E11.621 - Type 2 diabetes mellitus with foot ulcer (ICD-10) ?L97.509 - Non-pressure chronic ulcer of other part of unspecified foot with unspecified severity (ICD-10) COPD with chronic bronchitis ?J44.89 - Other specified chronic obstructive pulmonary disease (ICD-10) Type 2 diabetes mellitus, with long-term current use of insulin ?E11.9 - Type 2 diabetes mellitus without complications (ICD-10) ?Z79.4 - superintendent marine oil terminal (current) use of insulin (ICD-10) Mixed hyperlipidemia ?E78.2 - Mixed hyperlipidemia (ICD-10) GERD (gastroesophageal reflux disease) ?K21.9 - Gastro-esophageal reflux disease without esophagitis (ICD-10) Uncontrolled type 2 diabetes mellitus Noncompliance with diet and medication regimen ?Z91.199 - Patient's noncompliance with other medical treatment and regimen due to unspecified reason (ICD-10) ?Z91.148 - Patient's other noncompliance with medication regimen for other reason (ICD-10) Marijuana abuse ?F12.10 - Cannabis abuse, uncomplicated (ICD-10) Amphetamine abuse ?F15.10 - Other stimulant abuse, uncomplicated (ICD-10) Lumbar disc herniation ?M51.26 - Other intervertebral disc displacement, lumbar region (ICD-10) DDD (degenerative disc disease) Other and unspecified hyperlipidemia ?E78.5 - Hyperlipidemia, unspecified (ICD-10) Dysthymic disorder ?F34.1 - Dysthymic disorder (ICD-10) Surgical History (Updated 04/11/25 @ 15:48 by Lilli Staples ~ ANALISA, SPECIAL EDUCATION COORDINATOR) History of total left hip replacement (04/11/25) ?Z96.642 - Presence of left artificial hip joint (ICD-10) Status post right foot surgery (08/2017) ?Z98.890 - Other specified postprocedural states (ICD-10) History of total right hip arthroplasty (04/12/14) ?Z96.641 - Presence of right artificial hip joint (ICD-10) History of endometrial ablation ?Z98.890 - Other specified postprocedural states (ICD-10) Hx of tonsillectomy ?Z90.89 - Acquired absence of other organs (ICD-10) History of carpal tunnel release ?Z98.890 - Other specified postprocedural states (ICD-10) Social History What is your current living situation?: I presently have a place to live Problems where you live: no known problems Problems where you live details: NA In the past 12 months, utilities in danger of being shut off: no In past 12 months, lack of transportation kept you from medical appts, meetings, work, or getting things needed for daily living: no In the past 12 mos, have been you worried that your food would run out before you had money to buy more?: never true In the past 12 mos, the food you bought just didn't last and you didn't have money to buy more?: never true Highest level of school completed/degree received: decline to answer Smoking Status: Current every day smoker What tobacco products do you use: cigarettes Smoking packs per day: 0.5 Smoking cigarettes per day: 10.0 Years smoked: 50 Smoking pack-years: 25.00 Do you use any of these nicotine containing products: None Second hand tobacco smoke exposure: Yes How often do you have a drink containing alcohol: never How often do you have six or more drinks on one occasion: Never AUDIT-C Alcohol total score: 0 Non-prescribed substance use: marijuana (any form) Caffeine: Yes How often does anyone, including family, friends and others, physically hurt you : never How often does anyone, including family, friends and others, insult or talk down to you: never How often does anyone, including family, friends and others, threaten you with harm: never How often does anyone, including family, friends and others, scream or curse at you: never Are you using contraception or practicing any form of control: No service: No Meds Home Medications and Allergies Home Medications ?Medication ?Instructions ?Recorded ?Confirmed ?Type cyclobenzaprine 10 mg tablet 10 mg PO HS PRN 09/20/22 04/11/25 History flash glucose sensor (FreeStyle 09/20/22 03/04/25 His tory Chente 2 Sensor kit) omeprazole 20 mg capsule,delayed 20 mg PO DAILY 04/11/25 History release pen needle, diabetic 31 gauge x 09/20/22 03/04/25 His tory 3/16 (BD Ultra-Fine Mini Pen Needle) simvastatin 20 mg tablet 20 mg PO HS 09/20/22 5 History aspirin 81 mg tablet,delayed 81 mg PO DAILY 04/22/23 0 04/11/25 History release (Ecotrin Low Strength) Held on 04/11/25. Instructions: Resume on 04/17/25. resume aspirin 81 mg twice a day for 30 days after completing 5 days of anticoagulation with Xarelto/rivaroxaban. after 30 days you can go back to your regular dose of aspirin 81 mg once a day. calcium 600 mg (as 1 tab PO DAILY 04/22/2303/20 History carbonate)-vitamin D3 5 mcg (200 unit) tablet loratadine 10 mg tablet 10 mg PO DAILY 03/04/2503/20 History tiotropium bromide 18 mcg capsule 1 cap inhalation HAN LY 03/04/25 04/11/25 History with inhalation device (Spiriva with HandiHaler) albuterol sulfate 90 mcg/actuation 1 - 2 puff inhalati on Q4H PRN 03/26/25 04/11/25 History aerosol inhaler bupropion HCl 150 mg tablet,12 hr 150 mg PO QAM 04/11/25 History sustained-release empagliflozin 25 mg tablet 25 mg PO QAM 03/26/2504/11 History (Jardiance) gabapentin 300 mg capsule 900 mg PO Q12H 03/26/25 07/2 01/11 History insulin glargine 100 unit/mL (3 45 unit subcut HS 05/1304/11/25 History mL) subcutaneous pen (Lantus Solostar U-100 Insulin) insulin lispro 100 unit/mL 10 unit subcut BID 03/26/25 04/11/25 History subcutaneous pen fluticasone propionate 50 2 spray intranasal DAILY 04/09/25 History mcg/actuation nasal spray,suspension methocarbamol 750 mg tablet mg PO 04/09/25 History aspirin 81 mg chewable tablet 81 mg PO BID for DVT pro phylaxis 04/11/25 Rx (Aspirin Childrens) 30 days #60 tabs hydrocodone 5 mg-acetaminophen 325 1 tab PO Q4-6H PRN pain #40 tabs 04/11/25 Rx mg tablet rivaroxaban 10 mg tablet (Xarelto) 10 mg PO DAILY DVT prophylaxis 4 04/11/25 Rx days #4 tabs sennosides 8.6 mg tablet (Senna 17.2 mg (2 x 8.6 mg) P O BID PRN 04/11/25 Rx Lax) constipation #100 tabs Allergies Allergy/AdvReac Type Severity Reaction Status Date / Time ibuprofen Allergy Severe shortness Verified 04/11/25 07:46 of breath bacitracin Allergy Verified 04/11/25 07:46 erythromycin base Allergy Verified 04/11/25 07:46 oxycodone (From Percocet) Allergy Hives Verified 04/11/25 07:46 antibacterial ointments AdvReac rash, Uncoded 03/04/25 14:43 blisters Exam Narrative: Exam Narrative: Physical exam GENERAL: Comfortable, no acute distress. HEAD AND NECK: Atraumatic, normocephalic CARDIOVASCULAR: RRR. Normal S1, S2. No murmurs. RESPIRATORY: Clear to auscultation B/L. Good air entry B/L. NEUROLOGY: Alert, awake, oriented X 3. Normal speech. PSYCH: Normal mood, normal affect. Const: Vital Signs, click to edit/add: Vital Signs - 24 hr 04/11/25 07:30 04/11/25 10:59 04/11/25 11:05 Temperature 98.2 F 97.5 F L 97.5 F L Pulse Rate 79 70 71 Pulse Rate [Left P ulse Oximeter] Respiratory Rate 14 12 12 Blood Pressure 118/68 106/68 114/66 Blood Pressure [Le ft Arm] Pulse Oximetry 100 93 91 Oxygen Delivery Me thod OxyMask Room Air Room Air Oxygen Flow Rate 10 Fraction of Inspir ed Oxygen 100 04/11/25 11:10 04/11/25 11:15 04/11/25 11:20 Temperature 97.5 F L 97.5 F L 97.5 F L Pulse Rate 71 72 68 Pulse Rate [Left P ulse Oximeter] Respiratory Rate 12 12 12 Blood Pressure 99/61 104/65 110/62 Blood Pressure [Le ft Arm] Pulse Oximetry 90 98 96 Oxygen Delivery Me thod Room Air Room Air Room Air Oxygen Flow Rate Fraction of Inspir ed Oxygen 04/11/25 11:25 04/11/25 11:35 04/11/25 11:50 Temperature 97.9 F 96.4 F L 96.4 F L Pulse Rate 70 Pulse Rate [Left P ulse Oximeter] 70 70 Respiratory Rate 12 16 14 Blood Pressure 118/65 Blood Pressure [Le ft Arm] 115/74 131/69 Pulse Oximetry 95 100 96 Oxygen Delivery Me thod Room Air Room Air Room Air Oxygen Flow Rate Fraction of Inspir ed Oxygen 04/11/25 12:05 Temperature 96 F L Pulse Rate Pulse Rate [Left P ulse Oximeter] 68 Respiratory Rate 14 Blood Pressure Blood Pressure [Le ft Arm] 124/72 Pulse Oximetry 95 Oxygen Delivery Me thod Room Air Oxygen Flow Rate Fraction of Inspir ed Oxygen Assessment and Plan Assessment and plan (1) Status post total hip replacement, left: Problem comment: 04/11/2025, Dr. Basurto -Start early ambulation with physical therapy. -Xarelto x 5 days then aspirin x 30 days will be used for DVT prophylaxis -Monitor for urine output postoperatively, bladder scan if needed. -Encourage incentive spirometry. Status: Acute (2) Type 2 diabetes mellitus, with long-term current use of insulin: Problem comment: - Patient states that she uses long-acting insulin glargine at night with a dose of 45 units and Empagliflozin 25 mg q.a.m. - Will give her insulin glargine at 30 units tonight. will resume empagliflozin tomorrow morning. - Ordered insulin sliding scale. Status: Acute (3) Mixed hyperlipidemia: Problem comment: on a statin Status: Acute (4) GERD (gastroesophageal reflux disease): Problem comment: on PPI Status: Acute (5) Tobacco use: Problem comment: everyday tobacco smoker 10 cigarettes a day counseled on quitting smoking Status: Acute (6) Osteoarthritis of left hip: Status: Acute Total Time Spent Total Time Spent: Time spent: Today I spent 75 minutes seeing the patient, discussing the patient with ER staff, reviewing [facility]panse and EPIC notes/diagnostics, discussing the care plan with our care time that includes social work, PT/OT, pharmacy, RT, alf and documenting my impressions and plan in the medical record.
[2025-04-11] MEDS: CEFAZOLIN 2 GM in 0.9 % SODIUM CHLORIDE Mini-bag 100 ML IVPB (16:48)
--- NOTE | 2025-04-11 18:23 | PC.NURSE ---
End of shift note? Patient was very pleasant and cooperative throughout the shift. She was admitted after TLHA. Pain has been well controlled with medication and ice. Surgical dressing looks clean and intact. She has recovered full feeling after spinal block, and did well with PT. She is a stand by assist with a walker. Lung sounds have been clear bilaterally; heart sounds are regular. Active bowel sounds in all quadrants. Pitting edema 2+ was noted bilaterally. Good capillary refill, and pedal pulses on both legs. Diet was advanced to regular diet.
[2025-04-11] MEDS: GABAPENTIN 300 MG CAPSULE 900 MG PO (20:58)
[2025-04-11] MEDS: SENNOSIDES 1 TAB TABLET 2 TAB PO (20:59)
[2025-04-11] MEDS: SIMVASTATIN 20 MG TABLET PO (21:00)
[2025-04-11] MEDS: OMEPRAZOLE 20 MG CAPSULE DR PO (21:37)
[2025-04-12] MEDS: CEFAZOLIN 2 GM in 0.9 % SODIUM CHLORIDE Mini-bag 100 ML IVPB (00:39)
[2025-04-12 01:00] VITALS: BP 118/62; PULSE 98; RESP 18; TEMP 36.4; O2SAT 95
[2025-04-12] MEDS: HYDROCODONE-ACETAMIN 5-325 MG 1 TAB PO ×3 (04:55→09:04)
[2025-04-12 05:00] VITALS: BP 124/69; PULSE 103; RESP 16; TEMP 36.7; O2SAT 92
--- NOTE | 2025-04-12 05:55 | PC.NURSE ---
End of shift note [id number]: Pt A&O x 4 and able to make needs known. She is transferring/ambulating with assist of 1 using FWW & gait belt. Dressing to L hip C/D/I and CMS to LLE intact. -05/29 L hip pain managed with PRN pain medications along with ice, rest and repositioning. Bilateral foot pumps worn throughout the shift. Pt has been denying nausea with no vomiting noted. VSS- pt has been afebrile and on RA throughout the shift. Pt tolerating regular diet and has been continent of bladder. Bed alarm on for safety and call light within reach. ?
[2025-04-12 06:51] LABS: Hematocrit 33.0 % (33.0-51.0); Hemoglobin* 10.1 gm/dL (12.0-16.0); Mean Corpuscular HGB Conc 31 gm/dL (32-36); Mean Corpuscular Hemoglobin 26 pg (26-34); Mean Corpuscular Volume 86 fL (80-100); Red Blood Count 3.83 m/uL (4.00-5.20); White Blood Count* 8.94 K/uL (4.50-11.00)
[2025-04-12 07:00] VITALS: BP 130/69; PULSE 103; PULSE 107; RESP 14; TEMP 36.7; O2SAT 94
[2025-04-12 07:00] LABS: Slide Review Reflex No
[2025-04-12 07:02] LABS: Albumin* 3.1 g/dL (3.3-5.0); Chloride* 102 mmol/L (96-114); Potassium* 4.7 mmol/L (3.6-5.1); Sodium* 132 mmol/L (135-149)
[2025-04-12 07:05] LABS: Alanine Aminotransferase* 17 U/L (4-35); Alkaline Phosphatase* 83 U/L (40-150); Anion Gap 2 mEq/L (7-15); Aspartate Amino Transferase* 29 U/L (12-35); Bilirubin Total* 0.1 mg/dL (0.1-1.5); Blood Urea Nitrogen* 18 mg/dL (7-30); Calcium* 8.3 mg/dL (8.4-10.6); Carbon Dioxide* 28 mmol/L (20-32); Creatinine* 0.7 mg/dL (0.5-1.5); Est. Creatinine Clearance* 46.40; Estimated Glomerular Filt Rate 96 ml/min; Glucose* 287 mg/dL (60-115); Total Protein* 6.2 g/dL (6.0-8.3)
[2025-04-12] MEDS: INSULIN ASPART 100 UNIT/ML SUBCUT (07:54)
[2025-04-12] MEDS: EMPAGLIFLOZIN 25 MG TABLET PO (08:17)
[2025-04-12] MEDS: GABAPENTIN 300 MG CAPSULE 900 MG PO (08:17)
[2025-04-12] MEDS: RIVAROXABAN 10 MG TABLET PO (08:17)
[2025-04-12] MEDS: SENNOSIDES 1 TAB TABLET 2 TAB PO (08:18)
[2025-04-12] MEDS: ACETAMINOPHEN 325 MG TABLET 650 MG PO (08:18)
--- NOTE | 2025-04-12 08:58 | PM.ORPN ---
Subjective Subjective Time Seen by Provider: 07:45 Date Seen: 04/12/25 Principal diagnosis: Status post left hip replacement Interval history: Dodie has pain this morning. She plans to discharge with her friend today. Ortho Exam Narrative Exam Narrative: Alert and oriented x3. Patient is in no acute distress. Converses without labored breathing. Hearing is grossly intact. Ambulates with a walker. Examination of the left hip shows the dressing is intact. CMS intact left lower extremity. No erythema or warmth or sign of infection. Mild edema. Calves are soft and nontender. Const Vital Signs, click to edit/add: Vital Signs - 24 hr 04/11/25 10:59 04/11/25 11:05 04/11/25 11:10 Temperature 97.5 F L 97.5 F L 97.5 F L Pulse Rate 70 71 71 Pulse Rate [Left Pulse Oximeter] Respiratory Rate 12 12 12 Blood Pressure 106/68 114/66 99/61 Blood Pressure [Left Arm] Blood Pressure [Left forearm] Pulse Oximetry 93 91 90 Oxygen Delivery Method Room Air Room Air Room Air Oxygen Flow Rate Fraction of Inspired Oxygen 04/11/25 11:15 04/11/25 11:20 04/11/25 11:25 Temperature 97.5 F L 97.5 F L 97.9 F Pulse Rate 72 68 70 Pulse Rate [Left Pulse Oximeter] Respiratory Rate 12 12 12 Blood Pressure 104/65 110/62 118/65 Blood Pressure [Left Arm] Blood Pressure [Left forearm] Pulse Oximetry 98 96 95 Oxygen Delivery Method Room Air Room Air Room Air Oxygen Flow Rate Fraction of Inspired Oxygen 04/11/25 11:35 04/11/25 11:50 04/11/25 12:05 Temperature 96.4 F L 96.4 F L 96 F L Pulse Rate Pulse Rate [Left Pulse Oximeter] 70 70 68 Respiratory Rate 16 14 14 Blood Pressure Blood Pressure [Left Arm] 115/74 131/69 124/72 Blood Pressure [Left forearm] Pulse Oximetry 100 96 95 Oxygen Delivery Method Room Air Room Air Room Air Oxygen Flow Rate Fraction of Inspired Oxygen 04/11/25 12:20 04/11/25 12:35 04/11/25 13:05 Temperature 96 F L 96 F L 96.6 F L Pulse Rate Pulse Rate [Left Pulse Oximeter] 79 76 74 Respiratory Rate 14 16 16 Blood Pressure Blood Pressure [Left Arm] 126/70 126/72 141/87 H Blood Pressure [Left forearm] Pulse Oximetry 96 95 96 Oxygen Delivery Method Room Air Room Air Room Air Oxygen Flow Rate Fraction of Inspired Oxygen 04/11/25 13:35 04/11/25 14:35 04/11/25 15:00 Temperature Pulse Rate Pulse Rate [Left Pulse Oximeter] 77 75 Respiratory Rate 18 18 16 Blood Pressure Blood Pressure [Left Arm] 140/73 H 129/83 Blood Pressure [Left forearm] Pulse Oximetry 95 100 Oxygen Delivery Method Room Air Room Air Room Air Oxygen Flow Rate Fraction of Inspired Oxygen 04/11/25 15:00 04/11/25 15:35 04/11/25 16:30 Temperature 97.1 F L Pulse Rate Pulse Rate [Left Pulse Oximeter] 77 77 78 Respiratory Rate 17 17 16 Blood Pressure Blood Pressure [Left Arm] 124/78 112/58 L Blood Pressure [Left forearm] Pulse Oximetry 99 99 Oxygen Delivery Method Room Air Room Air Oxygen Flow Rate Fraction of Inspired Oxygen 04/11/25 17:30 04/11/25 21:39 04/11/25 22:53 Temperature 97.3 F L 97.0 F L Pulse Rate Pulse Rate [Left Pulse Oximeter] 78 87 Respiratory Rate 18 18 18 Blood Pressure Blood Pressure [Left Arm] 122/74 101/54 L Blood Pressure [Left forearm] Pulse Oximetry 99 96 96 Oxygen Delivery Method Room Air Room Air Room Air Oxygen Flow Rate Fraction of Inspired Oxygen 04/11/25 22:55 04/12/25 01:00 04/12/25 05:00 Temperature 97.6 F 98.0 F Pulse Rate Pulse Rate [Left Pulse Oximeter] 87 98 103 H Respiratory Rate 18 18 16 Blood Pressure Blood Pressure [Left Arm] 118/62 Blood Pressure [Left forearm] 124/69 Pulse Oximetry 95 92 Oxygen Delivery Method Room Air Room Air Oxygen Flow Rate Fraction of Inspired Oxygen 04/12/25 07:00 04/12/25 07:00 Temperature 98.0 F Pulse Rate Pulse Rate [Left Pulse Oximeter] 107 H 103 H Respiratory Rate 14 14 Blood Pressure Blood Pressure [Left Arm] 130/69 Blood Pressure [Left forearm] Pulse Oximetry 94 Oxygen Delivery Method Room Air Oxygen Flow Rate 10 Fraction of Inspired Oxygen 100 Assessment and Plan Assessment and plan (1) Status post total hip replacement, left: Problem details: 04/11/2025, Dr. Basurto -Start early ambulation with physical therapy. -Xarelto x 5 days then aspirin x 30 days will be used for DVT prophylaxis -Monitor for urine output postoperatively, bladder scan if needed. -Encourage incentive spirometry. Status: Acute Assessment and Plan: Plan for discharge is today, and when they meets discharge criteria. DVT prophylaxis upon discharge [includes Xarelto 10mg daily for a total of 5 days, then Aspirin 81mg twice daily for 30 days]. Remove dressing 1 week. Observe wound and phone Orthopedics with any questions or concerns Use Ice on operative hip unrestricted. Return to clinic in 7-10 days for a wound check Return to clinic in 6 weeks with surgeon Minimize narcotic use. Wean off and discontinue soon as possible. Activities as tolerated. No strenuous activity. Attend outpt PT
--- NOTE | 2025-04-12 11:04 | PC.NURSE ---
Addendum entered by Ritika Hallman RN 04/12/25 11:12: Pt. L H dressing CDI upon d/c. Pt. verbalized understanding of S & S of infection. Original Note: [id number]: Pt is AOX4. VSS. Afebrile. Pt. had high BG, gave insulin per sliding scale; see EMAR. Pt. expresses severe pain of 12/10 to PT. Therapy paused. Pt. was tearful. RN reached out to Kristine AUSTIN for additional dose of pain med. Order added to provide additional pain med. PT returned and pt had 5/10 pain. Discharge education provided. Smoking cessation education provided. Pt.'s friend and ride home bedside and pulled vehicle up. ANNE wheeled pt. out.
== END 2025-04-12 10:37 | disposition home or self-care (01) ==
LOC: OR 06:40 → MEDSURG 06:41
PROVIDERS: Student in an Organized Health Care Education/Training Program; PCP Family Medicine; Visit Provider Orthopaedic Surgery
PROC: (CPT 27130; principal; 2025-04-11 07:45)
DX: M16.12 Unilateral primary osteoarthritis, left hip (principal); G89.18 Other acute postprocedural pain; E11.9 Type 2 diabetes mellitus without complications; K21.9 Gastro-esophageal reflux disease without esophagitis; F17.210 Nicotine dependence, cigarettes, uncomplicated; Z79.4 Long term (current) use of insulin; Z79.84 Long term (current) use of oral hypoglycemic drugs; E78.2 Mixed hyperlipidemia; J44.89 Other specified chronic obstructive pulmonary disease
CPT/HCPCS: 27130; 01214; 36415; 64450; 73501; 76000; 76942; 80053; 82962; 83735; 85027; 86850; 86900; 86901; 97110; 97116; 97161; 97165; 97530; 97535; A9270; C1776; J0690; J1171; J1815; J2250; J2371; J2405; J2704; J2795; J3010; J7120

== ENCOUNTER 2025-06-26 17:57 | Outpatient (CLI) | payer MEDICARE, SELFPAY | END 2025-06-26 17:58 | disposition home or self-care (01) | LOC: NFLDUCREF 18:00 | PROVIDERS: PCP Family Medicine | DX: I83.229 Varicose veins of left lower extremity with both ulcer of unspecified site and inflammation (principal); L97.929 Non-pressure chronic ulcer of unspecified part of left lower leg with unspecified severity | CPT/HCPCS: 87070; 87186 ==

== ENCOUNTER 2025-07-03 08:07 | Outpatient (CLI) | payer MEDICARE, SELFPAY | END 2025-07-03 08:08 | disposition home or self-care (01) | PROVIDERS: PCP Family Medicine; Referring Provider Family Medicine; Visit Provider Nurse Practitioner Family | DX: E11.622 Type 2 diabetes mellitus with other skin ulcer (principal); L97.912 Non-pressure chronic ulcer of unspecified part of right lower leg with fat layer exposed; L97.822 Non-pressure chronic ulcer of other part of left lower leg with fat layer exposed; L89.312 Pressure ulcer of right buttock, stage 2; L03.115 Cellulitis of right lower limb; L03.116 Cellulitis of left lower limb; F17.210 Nicotine dependence, cigarettes, uncomplicated; Z79.4 Long term (current) use of insulin | CPT/HCPCS: 97597; 97602; G0463 ==

== ENCOUNTER 2025-07-11 14:16 | Outpatient (CLI) | payer MEDICARE, SELFPAY | END 2025-07-11 14:17 | disposition home or self-care (01) | LOC: WOUND 14:16 | PROVIDERS: PCP Family Medicine | DX: E11.622 Type 2 diabetes mellitus with other skin ulcer (principal); L97.812 Non-pressure chronic ulcer of other part of right lower leg with fat layer exposed; L03.115 Cellulitis of right lower limb; F17.210 Nicotine dependence, cigarettes, uncomplicated; Z79.4 Long term (current) use of insulin | CPT/HCPCS: 11042 ==

== ENCOUNTER 2025-07-17 10:15 | Outpatient (RCR) | payer MEDICARE, SELFPAY ==
--- NOTE | 2025-04-19 16:31 | PT.OPEX ---
PT [place] [facility] PT [facility] Outpatient Eval Start: 04/19/25 07:29 Freq: Status: Active Protocol: Document 04/19/25 07:29 EDD (Rec: 04/19/25 16:26 EDD [id number]) E-signed By Margaret Cervantes PT Physical Therapy Outpatient Evaluation Insurance Information Recert Due Date 07/17/25 Insurance Name Medicare B Medical Diagnosis LEFT HIP OA S/P LEFT EDITA 04/11/25 Treating Diagnosis LEFT HIP PAIN LEFT HIP WEAKNESS ANTALGIC GAIT Imaging Report AP Pelvis, AP and Cross-Table Lateral views of the left Information hip were obtained on 01/30/2025 from [facility]. These show Tonnis grade 3 left hip osteoarthritis with superior [id number] joint space narrowing, subchondral sclerosis, subchondral cysts and osteophytic spurring. Referring MD NANCY SAEED Subjective Preferred Name CALVIN Subjective CALVIN ARRIVES AMB WITH FWW ACCOMPANIED BY A FRIEND WHO IS DRIVING HER TO AND FROM [employer]. SHE IS WEARING A NEOPRENE COPPER NEW BRACE AND CROCS FOR FOOTWEAR. SHE STATES, I'M DOING PRETTY GOOD. I AM GETTING AROUND THE HOUSE AND MANAGING THE PETS WHEN THEY ARE WALKING AROUND ME. SHE CONTINUES THAT SHE HAS BEEN CONSISTENT WITH HER GENTLE MVMT AND TAKING PO OTC/RX PAIN MEDS, USING ICE AND ELEVATION FOR HER PAIN AND EDEMA MGMT. SHE IS PLEASED THAT SHE HAS HAD ONLY 2-3 BACKACHES SINCE HER SURGERY WHERE SHE WAS HAVING THEM DAILY AND THEY WERE DEBILITATING. Pain Comments -04/28 Date of Last 04/17/25 Physician Visit Date of Next 05/22/25 Physician Visit Date of Surgery (If 04/11/25 applicable) Current Work Status Retired Precautions Treatment PMHX: IDDM, GERD, H/O NON PRESSURE DIABETIC FOOT ULCER, Precautions/ DYSTHYMIC DISORDER, RIGHT EDITA 2013, R RTC REPAIR 10/2024 Contraindications , COPD, BILATERAL CTR Weight Bearing Weight Bear as Tolerated Status Therapy Limitations/ Other Medical Problem Systems Review Objective Other/Pertinent 04/19/25: HIP AROM 0-10-68 SUPINE; POINT TENDERNESS ABOUT Objective THE INCISION AND LATERAL HIP WITH MIN/MOD EDEMA NOTED. BANDAGE IS INTACT FROM HER LAST ORTHO VISIT ON 04/17/25 . Functional Test [id number] Performed & Score LEFS:2.5% Assessment Assessment/ PATIENT IS A 65YO REFERRED BY NANCY SAEED TO EVAL Impression AND TREAT LEFT HIP SEVERE OA S/O EDITA 04/11/25 . PATIENT DEMONSTRATES SIGNS AND SYMPTOMS CONSISTENT WITH LEFT HIP SEVERE OA S/O EDITA 04/11/25 CONTRIBUTING TO THEIR FUNCTIONAL IMPAIRMENTS OF BED MOBILITY, TRANSFERS, STDG >3MIN, LIGHT HOUSE CHORES, AMB ON ALL SURFACES AND STAIRS. PATIENT DESCRIBES THE FOLLOWING ALLEVIATING FACTORS: PO OTC/RX PAIN MEDICATION, ICE, AND ELEVATION . PATIENT HAS NOTABLE OBJECTIVE FINDING INCLUDING WHICH ALL ARE CONTRIBUTING TO THE CLINICAL IMPRESSION. PATIENT IS A GOOD CANDIDATE FOR SKILLED PHYSICAL THERAPY TO ADDRESS AFOREMENTIONED DEFICITS ABOVE IN ORDER TO RETURN TO ASYMPTOMATIC STATUS AND RETURN TO UNRESTRICTED MVMTS. INTERVENTION IS NECESSARY BY WAY OF THERAPEUTIC EXERCISE, MANUAL THERAPY, NEUROMUSCULAR RE -EDUCATION, STABILIZATION/PROPRIOCEPTION, MODALITIES FOR SYMPTOM MGMT, DRY NEEDLING, PATIENT EDUCATION PLEASE REFER TO APPROPRIATE SECTION WITHIN THIS EVALUATION FOR COMPLETE LIST OF GOALS AND PLAN OF CARE. DISCHARGE PLAN AND CRITERIA IS FOR PATIENT TO ACHIEVE THE GOALS LISTED BELOW OR UNTIL MAX POTENTIAL MET. PATIENT VERBALIZED UNDERSTANDING AND AGREEABLE TO POC, FREQ, AND GOALS ESTABLISHED. Primary Functional SEE ABOVE Limitations Plan of Care Rehabilitation Good Potential Physical Therapy 1. DECREASE LEFT HIP/THIGH PAIN TO <3/10 WITH ADL'S AND Goals PROGRESSION OF HER PHYSICAL THERAPY PROGRAM OVER THE NEXT 4-6 WEEKS 2. IMPROVE LEFT HIP ROM TO WNL OVER THE NEXT 4-6 WEEKS TO NORMALIZE GAIT MECHANICS, IMPROVE TRANSFERS WITH EASE, AND ASCEND/DESCEND STAIR W/RECIPROCAL GAIT SAFELY 3. IMPROVE LEFT HIP/GLUT/LE/CORE STRENGTH OVER THE NEXT 6-8 WEEKS TO TRANSFERS WITH EASE, AMB W/O AN AD FOR NOT ONLY HOUSEHOLD BUT ALSO COMMUNITY AMB, AND PROLONGED STANDING/WALKING W/O FLARE UP OF PAIN 4. PATIENT WILL BE INDEPENDENT WITH HER INDIVIDUALIZED AND COMPREHENSIVE HEP IN 8-10 WEEKS IN ORDER TO PROGRESS THE ABOVE GOALS, ONGOING SELF MANAGEMENT OF SYMPTOMS, AND ONGOING LEFT HIP ROM/MOBILITY/STRENGTH IMPROVEMENT NEEDED FOR FULL RETURN TO DAILY/WORK/PEER CENTERED ACTIVITIES THAT INCLUDE STANDING/WALKING WITHOUT FLARE UP OF PAIN. Coordination/ Referral Source Communication With Treatment Plan/ Dry Needling,Electrical Stimulation,Gait Training,Ice/ Direct Interventions Cold/Vasopneumatic,Joint Mobilization,Manual Therapy, Neuromuscular Re-ed,Self-Care/Home Management, Therapeutic Activities,Therapeutic Exercises Frequency/Duration 1-2X/WK Patient Will Be Completion of LTG(s),Independent w/HEP Discharged From Therapy Evaluation Billing Untimed Code 15 Treatment Minutes PT Eval No Charge No Complexity Low Certification Information Initial 04/19/25 Certification Date Ending Certification 07/17/25 Date Provider Signature Yes Required Provider Signature POC & Medical Necessity Shows Agreement With Physician NPI Number Write NPI# Here Physician Comment/ : Change Physician Signature Please Sign/Date Here & Date Requested
== END 2025-08-29 13:19 | disposition home or self-care (01) ==
PROVIDERS: PCP Family Medicine; Visit Provider Orthopaedic Surgery
DX: Z47.1 Aftercare following joint replacement surgery (principal); Z96.642 Presence of left artificial hip joint; Z51.89 Encounter for other specified aftercare
CPT/HCPCS: 97032; 97110; 97140; 97161

== ENCOUNTER 2025-07-18 12:54 | Outpatient (CLI) | payer MEDICARE, SELFPAY | END 2025-07-18 12:55 | disposition home or self-care (01) | LOC: WOUND 12:55 | PROVIDERS: PCP Family Medicine; Visit Provider Nurse Practitioner Family | DX: E11.622 Type 2 diabetes mellitus with other skin ulcer (principal); L97.812 Non-pressure chronic ulcer of other part of right lower leg with fat layer exposed; L03.115 Cellulitis of right lower limb; F17.210 Nicotine dependence, cigarettes, uncomplicated; Z79.4 Long term (current) use of insulin | CPT/HCPCS: G0463 ==

== ENCOUNTER 2025-07-25 12:57 | Outpatient (CLI) | payer MEDICARE, SELFPAY | END 2025-07-25 12:58 | disposition home or self-care (01) | LOC: WOUND 12:57 | PROVIDERS: PCP Family Medicine; Visit Provider Nurse Practitioner Family | DX: E11.622 Type 2 diabetes mellitus with other skin ulcer (principal); L97.812 Non-pressure chronic ulcer of other part of right lower leg with fat layer exposed; F17.210 Nicotine dependence, cigarettes, uncomplicated; Z79.4 Long term (current) use of insulin | CPT/HCPCS: 97597 ==

== ENCOUNTER 2025-07-30 14:41 | Outpatient (CLI) | payer MEDICARE, SELFPAY ==
--- NOTE | 2025-07-30 14:45 | CRLHL7_ITS ---
For Patients: As a result of the Century Cures Act, medical imaging exams and procedure reports are released immediately into your electronic medical record. You may view this report before your referring provider. If you have questions, please contact your health care provider. Indication: suspected arterial insufficiency, claudication Comparison: None Technique: Routine duplex arterial examination of bilateral lower extremities including 2D and spectral analysis, and color Doppler imaging was performed. Findings: In the right lower extremity there are multiphasic waveforms in the common femoral and deep femoral arteries. Monophasic waveforms are present throughout the femoral artery, popliteal artery, peroneal artery, posterior tibial artery, anterior tibial artery and dorsalis pedis artery. Elevated velocity in the distal femoral artery measures 224 cm/second. In the left lower extremity there are triphasic waveforms in the common femoral, deep femoral and femoral arteries. Monophasic waveforms in the popliteal, peroneal, posterior tibial and anterior tibial arteries along with the dorsalis pedis artery. Elevated velocity in the popliteal artery measuring 286 cm/second. Impression: 50-75 percent stenosis of the left popliteal artery with distal monophasic waveforms. 50-75 percent stenosis of the distal right femoral artery with distal monophasic waveforms. Dictated by Jese Magaña MD @ 07/30/2025 7:11:09 PM (Electronically Signed)
== END 2025-07-30 14:42 | disposition home or self-care (01) ==
LOC: US 14:43
PROVIDERS: PCP Family Medicine; Visit Provider Nurse Practitioner Family
DX: I70.201 Unspecified atherosclerosis of native arteries of extremities, right leg (principal); I70.202 Unspecified atherosclerosis of native arteries of extremities, left leg
CPT/HCPCS: 93926

== ENCOUNTER 2025-08-01 14:18 | Outpatient (CLI) | payer MEDICARE, SELFPAY | END 2025-08-01 14:19 | disposition home or self-care (01) | LOC: WOUND 14:18 | PROVIDERS: PCP Family Medicine; Visit Provider Nurse Practitioner Family | DX: I73.9 Peripheral vascular disease, unspecified (principal); E11.622 Type 2 diabetes mellitus with other skin ulcer; L97.812 Non-pressure chronic ulcer of other part of right lower leg with fat layer exposed; F17.210 Nicotine dependence, cigarettes, uncomplicated; Z79.4 Long term (current) use of insulin | CPT/HCPCS: G0463 ==

== ENCOUNTER 2025-08-08 13:01 | Outpatient (CLI) | payer MEDICARE, SELFPAY | END 2025-08-08 13:02 | disposition home or self-care (01) | LOC: WOUND 13:01 | PROVIDERS: PCP Family Medicine; Visit Provider Nurse Practitioner Family | DX: I73.9 Peripheral vascular disease, unspecified (principal); L97.812 Non-pressure chronic ulcer of other part of right lower leg with fat layer exposed; E11.622 Type 2 diabetes mellitus with other skin ulcer; F17.210 Nicotine dependence, cigarettes, uncomplicated; Z79.4 Long term (current) use of insulin; S90.812A Abrasion, left foot, initial encounter; W55.03XA Scratched by cat, initial encounter | CPT/HCPCS: 97597; G0463 ==

== ENCOUNTER 2025-08-13 12:34 | Outpatient (CLI) | payer MEDICARE, SELFPAY | END 2025-08-13 12:35 | disposition home or self-care (01) | PROVIDERS: PCP Family Medicine; Visit Provider Nurse Practitioner Family | DX: I73.9 Peripheral vascular disease, unspecified (principal); E11.622 Type 2 diabetes mellitus with other skin ulcer; L97.812 Non-pressure chronic ulcer of other part of right lower leg with fat layer exposed; F17.210 Nicotine dependence, cigarettes, uncomplicated; Z79.4 Long term (current) use of insulin | CPT/HCPCS: 97597 ==

== ENCOUNTER 2025-08-22 13:00 | Outpatient (CLI) | payer MEDICARE, SELFPAY | END 2025-08-22 13:01 | disposition home or self-care (01) | LOC: WOUND 13:00 | PROVIDERS: PCP Family Medicine; Visit Provider Nurse Practitioner Family | DX: I73.9 Peripheral vascular disease, unspecified (principal); E11.622 Type 2 diabetes mellitus with other skin ulcer; L97.812 Non-pressure chronic ulcer of other part of right lower leg with fat layer exposed; F17.210 Nicotine dependence, cigarettes, uncomplicated; Z79.4 Long term (current) use of insulin | CPT/HCPCS: 11042 ==